=== PATIENT | female | born 1980 | race Caucasian/White ===

== ENCOUNTER 2019-12-07 13:02 | Inpatient (IN) ==
[2019-12-07] MEDS ORDERED: SODIUM CHLORIDE 0.9% 1000ML 2,000 ML IV ONE (13:28)
--- NOTE | 2019-12-07 13:32 | XRay Report ---
XR chest 1V portable CLINICAL HISTORY: 39 years-old Female presenting with Chest Pain. TECHNIQUE: Portable upright AP view of the chest was obtained. COMPARISON: None. FINDINGS: Cardiomediastinal silhouette normal. Lungs are hyperinflated. No focal opacity. No pleural effusion o r pneumothorax. Osseous structures normal. Upper abdomen normal. IMPRESSION: 1. Hyperinflation could be due to exuberant inspiratory effort or obstructive lung disease. 2. No focal infiltrate to suggest pneumonia or other evidence of acute cardiopulmonary disease. ACT 112: Negative or not required by law. Electronically signed by: Mickey Boudreaux M.D. 12/07/2019 1:31 PM
[2019-12-07] MEDS ORDERED: ONDANSETRON INJ 2 MG/ML 2 ML VIAL IV STA (13:34)
--- NOTE | 2019-12-07 14:03 | Electrocardiogram Report ---
Test Reason : Blood Pressure : / mmHG Vent. Rate : 093 BPM Atrial Rate : 093 BPM P-R Int : 116 ms QRS Dur : 076 ms QT Int : 356 ms P-R-T Axes : 084 082 070 degrees QTc Int : 442 ms Poor data quality, interpretation may be adversely affected Normal sinus rhythm Biatrial enlargement Hyperacute T wave abnormality Abnormal ECG No previous ECGs available Confirmed by Bola Noble ([id number]) on 12/07/2019 2:03:27 PM Referred By: ER Confirmed By:Bola Noble
[2019-12-07 14:49] LABS: Basophils # (auto) 0.01 K/uL (0-0.2); Basophils % (auto) 0.1 %; Hemoglobin 12.8 g/dL (12.0-16.0); Immature Granulocytes # (auto) 0.04 K/uL (0.00-0.02); Immature Granulocytes % (auto) 0.5 %; Lymphocytes # (auto) 0.54 K/uL (1.2-3.4); Lymphocytes % (auto) 6.5 %; Mean Corpuscular Hgb Conc 31.2 g/dL (32-36); Mean Corpuscular Volume 76.9 fL (80-100); Mean Platelet Volume 11.4 fL (7.4-10.4); Monocytes % (auto) 4.8 %; Neutrophils # (auto) 7.34 K/uL (1.4-6.5); Neutrophils % (auto) 88.1 %; Platelet Count 430 K/uL (130-400); RDW Coefficient of Variation 17.6 % (11.5-14.5); RDW Standard Deviation 46.6 fL (36.4-46.3); Red Blood Count 5.33 M/uL (4.2-5.4); White Blood Count 8.33 K/uL (4.8-10.8)
[2019-12-07 15:13] LABS: Albumin Globulin Ratio 1.3 (0.9-2); Albumin Level 4.5 gm/dl (3.4-5.0); Aspartate Aminotransferase 10 U/L (15-37); BUN Creatinine Ratio 15.5 (10-20); Bilirubin,Total 0.4 mg/dl (0.2-1); Blood Urea Nitrogen 23 mg/dl (7-18); Calcium 8.6 mg/dl (8.5-10.1); Carbon Dioxide 14 mmol/L (21-32); Chloride 88 mmol/L (98-107); Creatinine Clr Calc Pharmacy 25.8 ml/min; Est GFR (African American) 51.2; Est GFR (Non-African American) 44.1; Globulin 3.5 gm/dl (2.5-4.0); Glucose 1092 mg/dl (70-99); Lipase 88 U/L (73-393); Potassium 5.2 mmol/L (3.5-5.1); Sodium 122 mmol/L (136-145)
[2019-12-07] MEDS ORDERED: INSULIN REGULAR 250 UNITS in SODIUM CHLORIDE 0.9% 247.5 ML IV SCH (15:30)
[2019-12-07] MEDS ORDERED: NORMOSOL-R 1,000 ML IV ONE (15:30)
[2019-12-07] MEDS ORDERED: ED DKA INSULIN DRIP ONE (15:30)
[2019-12-07] MEDS ORDERED: DKA GOAL RANGE 150-250 mg/dl ONE (15:30)
--- NOTE | 2019-12-07 15:30 | Emergency Department Note ---
ED Visit Note This patient was seen in concert with Dr. Ayers and we discussed and agreed upon the history, physical, assessment, and plan. See attending's note for details. . Resident Activity Tracking Resident Involvement: Resident Care Provided Care Provided: Adult ED
[2019-12-07 15:45] LABS: Beta-Hydroxybutyrate 74.49 mg/dl (0.2-2.81)
[2019-12-07] MEDS ORDERED: GLUCOSE 40% GEL 15 GM TUBE PO PRN (15:45)
[2019-12-07] MEDS ORDERED: DEXTROSE 50% 50 ML SYRINGE IV PRN (15:45)
[2019-12-07] MEDS ORDERED: NovoLIN-R BOLUS FROM BAG IV ONE (15:45)
[2019-12-07] MEDS ORDERED: GLUCOSE 10 TABS/TUBE PO PRN (15:45)
[2019-12-07] MEDS ORDERED: GLUCAGON FOR INJ 1 MG VIAL IM PRN (15:45)
[2019-12-07] MEDS ORDERED: CARBOHYDRATES FOR HYPOGLYCEMIA PO PRN (15:45)
[2019-12-07 15:46] LABS: Alanine Aminotransferase 22 U/L (12-78); Alkaline Phosphatase 87 U/L (45-117); Troponin I < 0.015 ng/ml (0-0.045)
[2019-12-07 15:56] LABS: Magnesium 2.7 mg/dl (1.8-2.4); Phosphorus 4.8 mg/dl (2.5-4.9)
--- NOTE | 2019-12-07 16:13 | CT Scan Report ---
CT head/brain wo con CT DOSE: 537.48 mGy.cm HISTORY: Mental status change dizzy TECHNIQUE: Multiaxial CT images of the head were performed without the use of intravenous contrast. A dose lowering technique was utilized adhering to the principles of ALARA. Comparison: None. Findings: The paranasal sinuses and mastoid air cells are clear. The calvarium and skull base are int act. The ventricles and sulci are within normal limits. There is no mass, hematoma, midline shift, or acute infarct. Impression: No acute intracranial abnormality. ACT 112: Negative or not required by law. The above report was generated using voice recognition software. It may contain grammatical, syntax or spelling errors. Electronically signed by: Iftikhar Soares M.D. 12/07/2019 4:11 PM
--- NOTE | 2019-12-07 16:37 | History & Physical Report ---
Date of Service December 07, 2019 Assessment & Plan (1) DKA (diabetic ketoacidoses): Pt presents with weakness, nausea, weight loss, polyuria, polydipsia Found to be in DKA with BSG >1000, pH 7.25, +ketones, AG 20 , HCO3 14 - received 2 L of IV NS in the ED, IV insulin gtt just started in the ED - will admit to ICU and treat with IV insulin gtt , IV fluid per DKA protocol - BMP q4 hrs - close hemodynamic monitoring - no prior hx of diabetes - obtain HbA1c - certified lactation educator and pharmacy for glycemic management - pt will need long-tern insulin treatment and go home with insulin sc, at this point difficult to assess proper insulin doses, christian. d/t pt's body habitus, BMI ~15 - pt will need close follow up for diabetes management - will order BILL 65 Abs and ICA antibodies for DM type 1 eval HEATHER - Cr above 1.4 - secondary to DKA and dehydration - cont. IVF - cont. to closely monitor Pseudohyponatremia - Na 122 in the setting of glc >1000 - will cont. to closely monitor, BMP q4 hrs per DKA protocol Severe malnutrition in setting of undiagnosed Diabetes presenting in DKA - pt's BMI ~15 - says she was always thin but most recently lost sign. amount of weight (d/t uncontrolled DM) - weight should improve in the future after insulin treatment and DM control - should follow up w/ PCP regarding weight management (2) Tachycardia: - due to dehydration , DKA - received 2 L of NS in the ED - may need additional IVF - says she also has hx of episodical tachycardia, previously evaluated w/ cardiology - no treatment needed at that time - monitor on tele in ICU - no sign of infection Dispo: ICU Code: Full History of Present Illness Chief Complaint: Palpitations, nausea, shortness of breath, nausea, weight loss, polyuria, polydipsia Primary Care Provider: NO PCP Today (12/07/2019) patient was seen by Jackie Quiros PA-C Patient is a 39-year-old female, with no significant past medical history, besides occasional tachycardia since she has been 17 years old. She presented today at her PCP office, and was seen by Jackie Quiros PA-C. Pt has been feeling thirsty, and having polyuria since . She has had nausea, for past several days. She also has had significant weight loss. Patient says that her regular weight is about 104 pounds, recently she is about 87 pounds. For past couple of days she also felt short of breath and had palpitations. On November 18, she had 6 teeth extracted. Today she followed up with her dentist, and reportedly there were no issues. At her PCP office today, she was found to be tachycardic in the 190s. She was sent to the ER via ambulance for further evaluation. She was found to have SVT, and received adenosine in the ED, now she is in normal sinus rhythm. However her blood glucose level was elevated over 1000. Ketones positive. She also has HEATHER/d ehydrated. VBG obtained, pH 7.25. Patient was started on DKA treatment in the ED, she received 2 L of normal saline and was started on IV insulin drip. Home medications on admission: occasional Advil Allergies Allergy/AdvReac Type Severity Reaction Status Date / Time No Known Allergies Allergy Verified 12/07/19 15:44 Home Medications Home Medications Medication Instructions Recorded Confirmed Type Women's One Daily 1 tab PO DAILY 12/07/19 12/07/19 History blood glucose control, normal #1 ea 12/10/19 Rx [OneTouch Verio Mid Control] insulin aspart U-100 [Novolog 7 units SQ UD #15 ml 12/10/19 Rx Flexpen U-100 Insulin] insulin glargine [Lantus Solostar 12 units SQ DAILY #15 ml 12/10/19 Rx U-100 Insulin] lancets [Lancets,Thin] #100 ea 12/10/19 Rx pen needle, diabetic [BD #100 ea 12/10/19 Rx Ultra-Fine Micro Pen Needle] Past Med/Surg History Medical History Tachycardia Surgical History H/O tooth extraction Family History Mother Ovarian cancer Father Heart disease Grandmother (Paternal) Diabetes Grandfather (Maternal) Stroke Social History Preferred Language: Albanian Communication Ability: Effective Resource Conservation Manager Required: No Beliefs That Will Affect Care: None Current Living Situation: Spouse and Family Feels Safe at Home: Yes Smoking Status: Current every day smoker Tobacco Type: cigarettes ; Second Hand Exposure: Yes ; Hx Alcohol Use: Yes Alcohol type: wine and hard liquor Hx Substance Use: Yes substance use type: marijuana Review of Systems Review of Systems: All systems reviewed & are unremarkable except as noted in HPI & below Constitutional: + fatigue and + weight loss; no fever and no chills Eyes: + worsening vision Ear, Nose, Mouth, Throat: + ear pain (Muffled hearing) and + dental pain (Recent dental extraction, but no current issues) Respiratory: + dyspnea; no cough and no pain on inspiration Cardiovascular: + palpitations; no chest pain and no edema Gastrointestinal: + nausea and + vomiting; no abdominal pain Genitourinary: + urinary frequency Musculoskeletal: + back pain (Chronic) Integumentary: no rash Neurologic: no localized weakness, no paresthesia and no confusion Psychiatric: no behavioral changes, no depression, no anxiety and no panic attacks Endocrine: + polydipsia and + polyuria Hematologic / Lymphatic: no easy bleeding and no easy bruising Allergy / Immunological: no lip swelling and no urticaria Physical Exam Physical Exam: Very thin adult female, lying in bed, in no acute distress Constitutional: WD/WN, vitals as above + ill appearing and + thin Eyes: PERRL, conjunctivae normal, anicteric sclerae EOM intact bilaterally ENMT: external ear and nose normal, oropharynx normal Mouth: + dentures (very poor dentition) Neck: trachea midline, no thyromegaly normal visual inspection Respiratory: normal respiratory effort, lungs clear to auscultation Auscultation: no crackles, no rhonchi and no wheezes Cardiovascular: RRR, no murmur, no edema Heart Sounds: no murmur Chest (Breasts): Chest: normal inspection of chest Gastrointestinal (Abdomen): Inspection/Auscultation: abdomen normal to inspection and normal bowel sounds Percussion/Palpation: abdomen soft; abdomen nontender and no guarding Abdomen: Extremely thin Musculoskeletal: no cyanosis or clubbing, extremities motor strength 5/5 Head/Neck/Chest: normocephalic, head atraumatic and neck supple Extremities: extremities normal to inspection Moves all 4 extremities spontaneously and without difficulty Skin: no rashes, warm and dry Neurologic: PERRL, EOMI, accommodation nl, no face palsy, no dysarthria moves all extremities Speech / Cognition: normal speech No sensory loss noted Psychiatric: A+Ox3, euthymic affect Speech: normal rate/rhythm/volume of speech Genitourinary: no CVA tenderness Lymphatic: no lymphedema Results & Data Vital Signs (Past 12 Hours) Vital Signs Temp Pulse Pulse Resp BP BP Pulse Ox 12/07/19 14:34 87 14 135/92 99 12/07/19 13:28 99 12/07/19 13:12 36.6 C 91 H 16 131/87 99 Laboratory Results 12/07/19 12/07/19 12/07/19 Range/Units 17:06 16:02 16:02 WBC (4.8-10.8) K/uL RBC (4.2-5.4) M/uL Hgb (12.0-16.0) g/dL Hct (37-47) % MCV (80-100) fL MCH (25-34) pg MCHC (32-36) g/dL RDW Std Deviation (36.4-46.3) fL RDW Coeff of Bao (11.5-14.5) % Plt Count (130-400) K/uL MPV (7.4-10.4) fL Immature Gran % (Auto) % Neut % (Auto) % Lymph % (Auto) % Amite % (Auto) % Eos % (Auto) % Baso % (Auto) % Immature Gran # (Auto) (0.00-0.02) K/uL Neut # (Auto) (1.4-6.5) K/uL Lymph # (Auto) (1.2-3.4) K/uL Amite # (Auto) (0.11-0.59) K/uL Eos # (Auto) (0-0.5) K/uL Baso # (Auto) (0-0.2) K/uL VBG pH 7.25 L Cancelled VBG pCO2 30 L Cancelled VBG pO2 52 Cancelled VBG HCO3 13 Cancelled VBG O2 Saturation 81.1 Cancelled VBG Base Excess -13.2 Cancelled Barometric Pressure 729.5 Cancelled Sodium (136-145) mmol/L Potassium (3.5-5.1) mmol/L Chloride (98-107) mmol/L Carbon Dioxide (21-32) mmol/L Anion Gap (3-11) BUN (7-18) mg/dl Creatinine (0.6-1.2) mg/dl Est Cr Clr Drug Dosing ml/min Est GFR ( Amer) Est GFR (Non-Af Amer) BUN/Creatinine Ratio (10-20) Glucose 831 H* (70-99) mg/dl Calcium (8.5-10.1) mg/dl Phosphorus (2.5-4.9) mg/dl Magnesium (1.8-2.4) mg/dl Total Bilirubin (0.2-1) mg/dl AST (15-37) U/L ALT (12-78) U/L Alkaline Phosphatase (45-117) U/L Troponin I (0-0.045) ng/ml Total Protein (6.4-8.2) gm/dl Albumin (3.4-5.0) gm/dl Globulin (2.5-4.0) gm/dl Albumin/Globulin Ratio (0.9-2) Lipase (73-393) U/L Beta-Hydroxybutyric Acd 82.37 H (0.2-2.81) mg/dl 12/07/19 12/07/19 12/07/19 Range/Units 14:36 14:36 14:36 WBC 8.33 (4.8-10.8) K/uL RBC 5.33 (4.2-5.4) M/uL Hgb 12.8 (12.0-16.0) g/dL Hct 41.0 (37-47) % MCV 76.9 L (80-100) fL MCH 24.0 L (25-34) pg MCHC 31.2 L (32-36) g/dL RDW Std Deviation 46.6 H (36.4-46.3) fL RDW Coeff of Bao 17.6 H (11.5-14.5) % Plt Count 430 H (130-400) K/uL MPV 11.4 H (7.4-10.4) fL Immature Gran % (Auto) 0.5 % Neut % (Auto) 88.1 % Lymph % (Auto) 6.5 % Amite % (Auto) 4.8 % Eos % (Auto) 0.0 % Baso % (Auto) 0.1 % Immature Gran # (Auto) 0.04 H (0.00-0.02) K/uL Neut # (Auto) 7.34 H (1.4-6.5) K/uL Lymph # (Auto) 0.54 L (1.2-3.4) K/uL Amite # (Auto) 0.40 (0.11-0.59) K/uL Eos # (Auto) 0.00 (0-0.5) K/uL Baso # (Auto) 0.01 (0-0.2) K/uL VBG pH VBG pCO2 VBG pO2 VBG HCO3 VBG O2 Saturation VBG Base Excess Barometric Pressure Sodium 122 L (136-145) mmol/L Potassium 5.2 H (3.5-5.1) mmol/L Chloride 88 L (98-107) mmol/L Carbon Dioxide 14 L (21-32) mmol/L Anion Gap 20.0 H (3-11) BUN 23 H (7-18) mg/dl Creatinine 1.48 H (0.6-1.2) mg/dl Est Cr Clr Drug Dosing 25.8 ml/min Est GFR ( Amer) 51.2 Est GFR (Non-Af Amer) 44.1 BUN/Creatinine Ratio 15.5 (10-20) Glucose 1092 H* (70-99) mg/dl Calcium 8.6 (8.5-10.1) mg/dl Phosphorus 4.8 (2.5-4.9) mg/dl Magnesium 2.7 H (1.8-2.4) mg/dl Total Bilirubin 0.4 (0.2-1) mg/dl AST 10 L (15-37) U/L ALT 22 (12-78) U/L Alkaline Phosphatase 87 (45-117) U/L Troponin I < 0.015 (0-0.045) ng/ml Total Protein 8.0 (6.4-8.2) gm/dl Albumin 4.5 (3.4-5.0) gm/dl Globulin 3.5 (2.5-4.0) gm/dl Albumin/Globulin Ratio 1.3 (0.9-2) Lipase 88 (73-393) U/L Beta-Hydroxybutyric Acd 74.49 H (0.2-2.81) mg/dl Medications Administered Current Inpatient Medications Dextrose (Dextrose 50%) 25 - 50 ml IV UD PRN; Protocol PRN Reason: Hypoglycemia Protocol Stop: 01/06/20 15:44 Glucagon (Glucagen) 1 mg IM UD PRN; Protocol PRN Reason: Hypoglycemia Protocol Stop: 01/06/20 15:44 Glucose (Glucose 40%) 15 - 30 gm PO UD PRN; Protocol PRN Reason: Hypoglycemia Protocol Stop: 01/06/20 15:44 Glucose (Dex4 Glucose) 4 - 8 tabs PO UD PRN; Protocol PRN Reason: Hypoglycemia Protocol Stop: 01/06/20 15:44 Insulin Human Regular 250 (units/ Sodium Chloride) 250 mls @ 3.2 mls/hr IV .Q24H MARCO; Protocol Stop: 01/06/20 15:29 Last Admin: 12/07/19 16:25 Dose: 3.2 ml/hr, 3.2 mls/hr Documented by: Miscellaneous (Carbohydrates For Hypoglycemia) 15 - 30 gm PO UD PRN PRN Reason: Hypoglycemia Treatment Stop: 01/06/20 15:44 Code Status & VTE Plan Code Status Full (1) DKA (diabetic ketoacidoses) Diabetes mellitus complication detail: without coma Diabetes mellitus type: other specified (including LEVY) Qualified Code(s): E13.10 - Other specified diabetes mellitus with ketoacidosis without coma
[2019-12-07 17:15] LABS: Base Excess VBG -13.2 mEq/L; Oxygen Saturation VBG 81.1 %; pH VBG 7.25 (7.36-7.41)
[2019-12-07 17:22] LABS: Beta-Hydroxybutyrate 82.37 mg/dl (0.2-2.81)
[2019-12-07 19:15] LABS: Beta-Hydroxybutyrate 60.84 mg/dl (0.2-2.81)
--- NOTE | 2019-12-07 19:21 | Critical Care Consultation ---
Date of Consultation December 07, 2019 Assessment & Plan (1) DKA (diabetic ketoacidoses): Reason Critically Ill: 39-year-old female admitted to the ICU for DKA Neuro - [facility] ICU: Negative Cardiac - SVTpatient was found to be in SVT in the emergency department with heart rate 190s -Given adenosine with successful conversion to NSR -Troponin negative -May have been exacerbated by electrolyte imbalances/acidosis in the setting of DKA - consider BB if recurrence -Patient currently remains in NSR, will continue to monitor on telemetry Respiratory - Patient has history of 1 PPD smoker, information on cessation offered Currently maintaining sats on room air, will monitor on pulse ox GI - Malnourishmentpatient has BMI 14.5 and reports over 10% body weight loss unintentional as of recent -Suspected secondary to DKA/type 1 diabetes, as patient reports she has had a healthy appetite -will advance diabetic diet as tolerated, will add boost shakes -Thiamine, folic acid, multivitamin added to the patient's med regimen -We will check TSH, T4 in a.m. -Nutrition consulted - will keep calorie count RENAL/LYTES - AKIlikely secondary to dehydration as creatinine has improved following fluid resuscitation -We will continue to trend with BMPs -Continue IV fluids -Avoid nephrotoxins Pseudo-hyponatremiapatient's corrected Na with hyperglycemia actually 138 -We will continue to trend but expect Na to correct as osmolality normalizes - Strict I's and O's ENDO - DKA/new onset diabetesinitial anion gap 20, pH 7.25, HCO3 14 -Patient placed on insulin drip, bolused with IV fluids, anion gap rapidly corrected -Glucose is trending down and bicarb trending up, will continue to monitor with BMP - DKA protocol -Patient likely stay on insulin drip overnight and convert to subcu in a.m. once corrected - Lipase WNL -Acidosis now corrected - Trend BHA - f/u Hgb A1c in AM -clinical trial educator consulted HEME - H&H stable, monitor routine CBCs ID - Recent tooth extraction, no signs of infection at this time, monitor for fever and leukocytosis LINES/IV ACCESS - Peripheral IVs DVT PROPHYLAXIS - SCDs, heparin I have personally spent 40 minutes of critical care time in the direct management of this patient. This is a life/limb threatening event. This includes time spent evaluating patient, direct bedside care, chart review, placing orders, interpretation of diagnostic studies, discussion with consultants, patient, and family members, as well as other required patient management activities. This time is exclusive of all separately billable procedures, and teaching time and separate from and in addition to any other critical care service time. Thank you for allowing us to participate in the care of this patient. Please refer to my attending physician's documentation for any further recommendations. (2) Acute hyponatremia: (3) SVT (supraventricular tachycardia): (4) Diabetes: (5) Admitted to intensive care unit: History of Present Illness Attending Physician: Taqueria Mack MD History of Present Illness Patient is a 39-year-old female with no significant past medical history. She was seen earlier today by PCP for complaints of polyuria, thirst, and significant weight loss which have been ongoing since late October. Patient also states that she started having nausea and vomiting, S OB, and palpitations that started a few days ago. Patient was found to be tachycardic with rate in the 190s and was transported to the emergency department. She was found to be in SVT and received adenosine with conversion to NSR. It was also discovered that the patient's blood glucose was greater than 1000 and she had positive ketones on her UA. Patient was given 2 L normal saline bolus and placed on insulin drip for treatment of DKA. She was then transferred to ICU for further management of new onset of diabetes with DKA. Upon arrival to the ICU the patient was calm and oriented. She complains of a mild headache. She denies changes in vision, dizziness, syncope, shortness of breath, sore throat, productive cough, palpitations, chest pain, nausea or vomiting, diarrhea, abdominal pain. Allergies Allergy/AdvReac Type Severity Reaction Status Date / Time No Known Allergies Allergy Verified 12/07/19 15:44 Home Medications Home Medications Medication Instructions Recorded Confirmed Type ibuprofen 400 mg PO Q6H PRN 12/07/19 12/07/19 History kvorguto-[id number]-[id number]-calcium-mins 1 tab PO DAILY 12/07/19 12/07/19 History [Women's One Daily] Patient History Medical History Tachycardia Surgical History H/O tooth extraction Family History Mother Ovarian cancer Father Heart disease Grandmother (Paternal) Diabetes Grandfather (Maternal) Stroke Social History Preferred Language: Bruneian Communication Ability: Effective Database Security Expert Required: No Beliefs That Will Affect Care: None Current Living Situation: Spouse and Family Other Information That Helps Us Care for You: No Feels Safe at Home: Yes Safety Concerns: Feels Safe At This Time Smoking Status: Current every day smoker Tobacco Type: cigarettes ; Do You Dip or Chew Tobacco: No ; Second Hand Exposure: Yes ; Tobacco Cessation Education Requested by Patient: Yes (pt requesting information) Hx Alcohol Use: Yes Alcohol type: wine and hard liquor Hx Substance Use: Yes substance use type: marijuana Last Used Substance Other:: 4 days ago Review of Systems Review of Systems: All systems reviewed & are unremarkable except as noted in HPI & below Physical Exam Constitutional: + thin, cooperative, comfortable, + malnourished and + underweight Eyes: PERRL, conjunctivae normal, anicteric sclerae ENMT: external ear and nose normal, oropharynx normal Neck: trachea midline, no thyromegaly Respiratory: normal respiratory effort, lungs clear to auscultation Cardiovascular: RRR, no murmur, no edema Heart Sounds: normal S1 and normal S2 Vessels: no JVD Extremities: normal capillary refill; no edema Gastrointestinal (Abdomen): normal bowel sounds, soft, nontender, no hepatosplenomegaly Musculoskeletal: no cyanosis or clubbing, extremities motor strength 5/5 Skin: no rashes, warm and dry Neurologic: PERRL, EOMI, accommodation nl, no face palsy, no dysarthria Psychiatric: A+Ox3, euthymic affect Results & Data Vital Signs (Past 12 Hours) Vital Signs Temp Pulse Pulse Resp BP BP BP 12/07/19 18:54 37.2 C 112 H 20 117/78 12/07/19 18:32 77 18 122/77 12/07/19 16:30 80 18 125/88 12/07/19 14:34 87 14 135/92 12/07/19 13:28 12/07/19 13:12 36.6 C 91 H 16 131/87 Pulse Ox 12/07/19 18:54 100 12/07/19 18:32 100 12/07/19 16:30 98 12/07/19 14:34 99 12/07/19 13:28 99 12/07/19 13:12 99 Coding Level of Care Code Critical Care 1st 30-74 mins Diagnoses DKA (diabetic ketoacidoses) E13.10 Diabetes mellitus complication detail: without coma Diabetes mellitus type: other specified (including LEVY) Acute hyponatremia E87.1 SVT (supraventricular tachycardia) I47.1 Diabetes E11.9 Admitted to intensive care unit Z78.9 (1) DKA (diabetic ketoacidoses) Diabetes mellitus complication detail: without coma Diabetes mellitus type: other specified (including LEVY) Qualified Code(s): E13.10 - Other specified diabetes mellitus with ketoacidosis without coma
[2019-12-07] MEDS ORDERED: ICU PROTOCOL FOR HYPERGLYCEMIA PRN (19:25)
[2019-12-07] MEDS ORDERED: SODIUM CHLORIDE 0.9% 1000ML 1,000 ML IV SCH (19:30)
--- NOTE | 2019-12-07 19:30 | Emergency Department Note ---
Entered by Shobha Nuñez acting as a scribe for Nish Ayers DO History of Present Illness General Chief complaint: Cardiac Assessment Time Seen by Provider: 12/07/19 13:15 Source: patient History of Present Illness Provider complaint: dizziness Onset (ago): hour(s) 3 Location: left and right Pain Consistency: + constant Maximum Pain Intensity: 0 Quality: + other (dizziness) Associated symptoms: + cough, + nausea/vomiting, + weakness and + other (Positive ringing ears; Positive vision blurriness; Positive throat pain; Positive urinary frequency; Negative dysuria;); no chest pain The patient, who is a 39 year old female with a medical history of tachycardia, presents to the Emergency Room with complaints of dizziness that occurred after an oral procedure at 1000. The patient explains that the her dizziness is consta nt and nothing exacerbates or improves it. The patient states that this morning at hour 1000 the patient was having an oral procedure done and noticed that she felt woozy after. The patient was sent to [facility] where her blood pressure was over 190. The patient informs that she has been nauseous for that past two days and vomits every time she eats. The patient expresses that she has ringing in h er ears and she is having vision blurriness. The patient states that she is having intermittent cough and throat pain. The patient states that her last bowel movement was yesterday which was normal. The patient expresses urinary frequency. The patient denies chest pain or dysuria. The patient reports smoking a pack a day, using marijuana, and drinking occasionally. The patient denies a history of hypertension but states that her father had heart problems in his 50s. The patient expresses a history of SVT with last week being her most recent episode. The patient states that she wore a halter in the past but it was unsucessful. The patient denies an eating disorder and denotes her recent weig ht loss to a previous surgical procedure. Home Medications Home Medications Medication Instructions Recorded Confirmed Type ibuprofen 400 mg PO Q6H PRN 12/07/19 12/07/19 History uamjboqo-xnno-UH-calcium-mins 1 tab PO DAILY 12/07/19 12/07/19 History [Women's One Daily] Allergies Allergy/AdvReac Type Severity Reaction Status Date / Time No Known Allergies Allergy Verified 12/07/19 15:44 Past Med/Surg History Medical History Tachycardia Surgical History H/O tooth extraction Family History Mother Ovarian cancer Father Heart disease Grandmother (Paternal) Diabetes Grandfather (Maternal) Stroke Social History Preferred Language: Polish Communication Ability: Effective Mainstreaming Facilitator Required: No Beliefs That Will Affect Care: None Current Living Situation: Spouse and Family Other Information That Helps Us Care for You: No Feels Safe at Home: Yes Safety Concerns: Feels Safe At This Time Smoking Status: Current every day smoker Tobacco Type: cigarettes ; Do You Dip or Chew Tobacco: No ; Second Hand Exposure: Yes ; Tobacco Cessation Education Requested by Patient: Yes (pt requesting information) Hx Alcohol Use: Yes Alcohol type: wine and hard liquor Hx Substance Use: Yes substance use type: marijuana Last Used Substance Other:: 4 days ago Review of Systems See HPI for pertinent positives & negatives. and A total of 10 systems reviewed and were otherwise negative Physical Exam Vital Signs Vital Signs - 24 hr 12/07/19 13:12 12/07/19 13:28 12/07/19 14:34 Temperature 36.6 C Temperature Source Oral Pulse Rate 91 H Pulse Rate [Apical] 87 Respiratory Rate 16 14 Blood Pressure 131/87 Blood Pressure [Right Arm] 135/92 Blood Pressure Mean 101 Blood Pressure Mean [Right Arm] 106 Pulse Oximetry 99 99 99 Oxygen Delivery Method Room Air Room Air Room Air Sepsis Recent Fever Within 48 Hours No Sepsis New/Unexplained Change in Mental Status No Sepsis Action Taken by Nursing No Action Required 12/07/19 16:30 Temperature Temperature Source Pulse Rate Pulse Rate [Apical] 80 Respiratory Rate 18 Blood Pressure Blood Pressure [Right Arm] 125/88 Blood Pressure Mean Blood Pressure Mean [Right Arm] 100 Pulse Oximetry 98 Oxygen Delivery Method Room Air Sepsis Recent Fever Within 48 Hours Sepsis New/Unexplained Change in Mental Status Sepsis Action Taken by Nursing GENERAL: sitting up in bed, cachectic, ill- appearing, mal-nourished, wearing hospital gown, EYE EXAM: normal conjunctiva, OROPHARYNX: no exudate, no erythema, lips, buccal mucosa, and tongue normal and mucous membranes are moist NECK: supple, no nuchal rigidity, no adenopathy, non-tender LUNGS: Clear to auscultation. Normal chest wall mechanics HEART: no murmurs, S1 normal and S2 normal ABDOMEN: abdomen soft, non-tender, normo-active bowel sounds, no masses, no rebound or guarding. BACK: Back is symmetrical on inspection and there is no deformity, no midline tenderness, no CVA tenderness. SKIN: no rashes and no bruising UPPER EXTREMITIES: upper extremities are grossly normal. LOWER EXTREMITIES: No pitting edema. NEURO EXAM: Normal sensorium, cranial nerves II-XII intact, normal speech, no weakness of arms, no weakness of legs. No drift. Finger to nose intact. Gross sensation intact. Course Course ED COURSE: Vital signs were reviewed and showed normotensive The patients medical record was reviewed The above diagnostic studies were performed and reviewed. ED treatments and interventions as stated above. 1311: The patient was evaluated in room resting. A complete history and physical examination was performed. 1525: I reviewed the patient's case with Jory Ness PA-C. Francisco Kenyon will evaluate the patient for further management. 1530: Upon reevaluation, the patient is resting.I discussed my findings with the patient and she understands and agrees with the treatment plan. Based on the patients age, coexisting illnesses, exam and lab findings the decision to treat as an inpatient was made. The patient remained stable while under my care. The patient will be evaluated for further management. Consultations Consultation #1: I reviewed the patient's case with Jory Ness PA-C. Francisco Kenyon will evaluate the patient for further management. Time: 15:25 Administered Medications Acetaminophen (Tylenol) 650 mg PO Q4H PRN PRN Reason: Pain or Fever Stop: 01/06/20 19:49 Last Admin: 12/07/19 19:53 Dose: 650 mg Documented by: [id number] Insulin Human Regular 250 (units/ Sodium Chloride) 250 mls @ 3.2 mls/hr IV .Q24H [facility]; Protocol Stop: 01/06/20 15:29 Last Titration: 12/07/19 19:00 Dose: 3.8 ml/hr, 3.8 mls/hr Documented by: [id number] Cosigned by: [id number] Admin: 12/07/19 16:25 Dose: 3.2 ml/hr, 3.2 mls/hr Documented by: [id number] Cosigned by: [id number] Sodium Chloride (Nss 1000ml) 1,000 mls @ 150 mls/hr IV .Q6H40M [facility] Stop: 01/06/20 19:29 Last Admin: 12/07/19 19:50 Dose: 150 mls/hr Documented by: [id number] Discontinued Medications Sodium Chloride (Nss 1000ml) 2,000 mls @ 999 mls/hr IV .Q2H1M ONE Stop: 12/07/19 15:28 Last Infusion: 12/07/19 19:12 Dose: 0 mls/hr Documented by: [id number] Admin: 12/07/19 14:34 Dose: 999 mls/hr Documented by: [id number] Parenteral Electrolytes (Normosol-R) 1,000 mls @ 999 mls/hr IV .Q1H1M ONE Stop: 12/07/19 16:30 Last Admin: 12/07/19 16:30 Dose: Not Given Documented by: [id number] Insulin Human Regular (Novolin R Bolus From Bag) 3.2 units IV ONE ONE Stop: 12/07/19 15:46 Last Admin: 12/07/19 16:25 Dose: 3.2 units Documented by: [id number] Cosigned by: [id number] Miscellaneous (Insulin Protocol Dka Goal Range) 1 ea N/A ONE ONE Stop: 12/07/19 15:31 Last Admin: 12/07/19 16:26 Dose: Not Given Documented by: [id number] Ondansetron HCl (Zofran) 4 mg IV NOW STA Stop: 12/07/19 13:35 Last Admin: 12/07/19 14:34 Dose: 4 mg Documented by: [id number] Critical Care Time Critical Care Time: Yes Total Critical Care Time: 34 I have personally spent 34 minutes of critical care time in the direct management of this patient. This includes bedside care, interpretation of diagno stic studies, and testing, discussion with consultants, patient, and family members, and other required patient management activities. This 34 minutes is in excess of all separately billable procedures. Medical Decision Making Differential Diagnosis Differential diagnosis includes etiologies such as benign positional vertigo, dehydration, hypovolemia, anemia, tumor, infection, hypoglycemia, electrolyte abnormalities, cardiac sources, intracerebral event, toxicologic, neurologic, as well as others were entertained. Medical Records Attestation: I reviewed the patient's medical records. Home Medications Current Medication List: was personally reviewed by me Laboratory Data Attestation: I reviewed the patient's lab results. Result diagrams: 12/07/19 14:36 12/07/19 17:57 Lab Results 12/07/19 12/07/19 12/07/19 Range/Units 14:36 14:36 14:36 WBC 8.33 (4.8-10.8) K/uL RBC 5.33 (4.2-5.4) M/uL Hgb 12.8 (12.0-16.0) g/dL Hct 41.0 (37-47) % MCV 76.9 L (80-100) fL MCH 24.0 L (25-34) pg MCHC 31.2 L (32-36) g/dL RDW Std Deviation 46.6 H (36.4-46.3) fL RDW Coeff of Bao 17.6 H (11.5-14.5) % Plt Count 430 H (130-400) K/uL MPV 11.4 H (7.4-10.4) fL Immature Gran % (Auto) 0.5 % Neut % (Auto) 88.1 % Lymph % (Auto) 6.5 % [place] % (Auto) 4.8 % Eos % (Auto) 0.0 % Baso % (Auto) 0.1 % Immature Gran # (Auto) 0.04 H (0.00-0.02) K/uL Neut # (Auto) 7.34 H (1.4-6.5) K/uL Lymph # (Auto) 0.54 L (1.2-3.4) K/uL [place] # (Auto) 0.40 (0.11-0.59) K/uL Eos # (Auto) 0.00 (0-0.5) K/uL Baso # (Auto) 0.01 (0-0.2) K/uL VBG pH VBG pCO2 VBG pO2 VBG HCO3 VBG O2 Saturation VBG Base Excess Barometric Pressure Sodium 122 L (136-145) mmol/L Potassium 5.2 H (3.5-5.1) mmol/L Chloride 88 L (98-107) mmol/L Carbon Dioxide 14 L (21-32) mmol/L Anion Gap 20.0 H (3-11) BUN 23 H (7-18) mg/dl Creatinine 1.48 H (0.6-1.2) mg/dl Est Cr Clr Drug Dosing 25.8 ml/min Est GFR ( Amer) 51.2 Est GFR (Non-Af Amer) 44.1 BUN/Creatinine Ratio 15.5 (10-20) Glucose 1092 H* (70-99) mg/dl Calcium 8.6 (8.5-10.1) mg/dl Phosphorus 4.8 (2.5-4.9) mg/dl Magnesium 2.7 H (1.8-2.4) mg/dl Total Bilirubin 0.4 (0.2-1) mg/dl AST 10 L (15-37) U/L ALT 22 (12-78) U/L Alkaline Phosphatase 87 (45-117) U/L Troponin I < 0.015 (0-0.045) ng/ml Total Protein 8.0 (6.4-8.2) gm/dl Albumin 4.5 (3.4-5.0) gm/dl Globulin 3.5 (2.5-4.0) gm/dl Albumin/Globulin Ratio 1.3 (0.9-2) Lipase 88 (73-393) U/L Beta-Hydroxybutyric Acd 74.49 H (0.2-2.81) mg/dl 12/07/19 12/07/19 12/07/19 Range/Units 16:02 16:02 17:06 WBC (4.8-10.8) K/uL RBC (4.2-5.4) M/uL Hgb (12.0-16.0) g/dL Hct (37-47) % MCV (80-100) fL MCH (25-34) pg MCHC (32-36) g/dL RDW Std Deviation (36.4-46.3) fL RDW Coeff of Bao (11.5-14.5) % Plt Count (130-400) K/uL MPV (7.4-10.4) fL Immature Gran % (Auto) % Neut % (Auto) % Lymph % (Auto) % [place] % (Auto) % Eos % (Auto) % Baso % (Auto) % Immature Gran # (Auto) (0.00-0.02) K/uL Neut # (Auto) (1.4-6.5) K/uL Lymph # (Auto) (1.2-3.4) K/uL [place] # (Auto) (0.11-0.59) K/uL Eos # (Auto) (0-0.5) K/uL Baso # (Auto) (0-0.2) K/uL VBG pH Cancelled 7.25 L VBG pCO2 Cancelled 30 L VBG pO2 Cancelled 52 VBG HCO3 Cancelled 13 VBG O2 Saturation Cancelled 81.1 VBG Base Excess Cancelled -13.2 Barometric Pressure Cancelled 729.5 Sodium (136-145) mmol/L Potassium (3.5-5.1) mmol/L Chloride (98-107) mmol/L Carbon Dioxide (21-32) mmol/L Anion Gap (3-11) BUN (7-18) mg/dl Creatinine (0.6-1.2) mg/dl Est Cr Clr Drug Dosing ml/min Est GFR ( Amer) Est GFR (Non-Af Amer) BUN/Creatinine Ratio (10-20) Glucose 831 H* (70-99) mg/dl Calcium (8.5-10.1) mg/dl Phosphorus (2.5-4.9) mg/dl Magnesium (1.8-2.4) mg/dl Total Bilirubin (0.2-1) mg/dl AST (15-37) U/L ALT (12-78) U/L Alkaline Phosphatase (45-117) U/L Troponin I (0-0.045) ng/ml Total Protein (6.4-8.2) gm/dl Albumin (3.4-5.0) gm/dl Globulin (2.5-4.0) gm/dl Albumin/Globulin Ratio (0.9-2) Lipase (73-393) U/L Beta-Hydroxybutyric Acd 82.37 H (0.2-2.81) mg/dl Imaging Data Radiologist's Impression: Radiology results as stated below per my review and the radiologist's interpretation: XR chest 1V portable CLINICAL HISTORY: 39 years-old Female presenting with Chest Pain. TECHNIQUE: Portable upright AP view of the chest was obtained. COMPARISON: None. FINDINGS: Cardiomediastinal silhouette normal. Lungs are hyperinflated. No focal opacity. No pleural effusion or pneumothorax. Osseous structures normal. Upper abdomen normal. IMPRESSION: 1. Hyperinflation could be due to exuberant inspiratory effort or obstructive lung disease. 2. No focal infiltrate to suggest pneumonia or other evidence of acute cardiopulmonary disease. ACT 112: Negative or not required by law. Electronically signed by: Mickey Boudreaux M.D. 12/07/2019 1:[address] head/brain wo con CT DOSE: 537.48 mGy.cm HISTORY: Mental status change dizzy TECHNIQUE: Multiaxial CT images of the head were performed without the use of intravenous contrast. A dose lowering technique was utilized adhering to the principles of ALARA. Comparison: None. Findings: The paranasal sinuses and mastoid air cells are clear. The calvarium and skull base are intact. The ventricles and sulci are within normal limits. There is no mass, hematoma, midline shift, or acute infarct. Impression: No acute intracranial abnormality. ACT 112: Negative or not required by law. The above report was generated using voice recognition software. It may contain grammatical, syntax or spelling errors. Electronically signed by: Iftikhar Soares M.D. 12/07/2019 4:11 PM ECG Data Attestation: I personally reviewed and interpreted this ECG as follows: Indication: + weakness Rate (beats per minute): 93 Rhythm: + sinus rhythm ECG [place]: + Normal ECG ST segments: + T-wave inversions (Septal) ECG Findings: + Peaked T waves (anterior leads) Additional Comments: Pre-hospital visit SVT; 190 BPM; Normal axis; Peak T waves; Blood Pressure Blood Pressure Findings: Normal blood pressure MDM Narrative The patient, who is a 39 year old female with a medical history of tachycardia, presents to the Emergency Room with complaints of dizziness associate with nausea vomiting increased thirst and increased urination. IV was established blood work was obtained shows no significant leukocytosis or anemia. IV was established blood work was obtained. Patient was ordered a total of 3 L IV fluids while in the ER. VBG with a pH of 7.25 and a CO2 of 30. BMP with hyponatremia at 122 and a glucose of over thousand. Patient had a anion gap of 20 and a CBC CO2 of 14. LFTs bilirubin troponin lipase was unremarkable. Beta hydroxybutyric was elevated. Patient was given an insulin drip and bolus. Chest x-ray and CT head was unremarkable. Patient was updated at bedside. Discussed with the hospitalist and admitted for DKA with metabolic acidosis following insulin drip and bolus and 3 L IV fluids. Impression & Plan DKA (diabetic ketoacidoses), Tachycardia, Acute hyponatremia Discharge Plan Visit Data *Final* Discharge Date/Time: 12/07/19 18:32 Chief Complaint: Cardiac Assessment ED Provider: Nish Ayers ED Midlevel Provider: William Ayala Discharge Problem: DKA (diabetic ketoacidoses), Tachycardia, Acute hyponatremia Patient Disposition: Admitted As Inpatient Discharge Instructions Interventions: ED Discharge Assessment Last Done: 12/07/19 18:32 Discharge Problem: DKA (diabetic ketoacidoses) Qualifiers: Diabetes mellitus type: other specified (including LEVY) Diabetes mellitus complication detail: without coma Qualified Code(s): E13.10 - Other specified diabetes mellitus with ketoacidosis without coma The scribe's documentation has been prepared under my direction and personally reviewed by me in its entirety. I confirm that the note above accurately reflects all work, treatment, procedures, and medical decision making performed by me.
[2019-12-07] MEDS ORDERED: ACETAMINOPHEN 325 MG TAB ONE (19:51)
[2019-12-07] MEDS: ACETAMINOPHEN 325 MG TAB PO PRN (19:53)
[2019-12-07 19:56] LABS: Base Excess VBG -5.9 mEq/L; Oxygen Saturation VBG 93.1 %; pH VBG 7.39 (7.36-7.41)
[2019-12-07 20:11] LABS: BUN Creatinine Ratio 19.6 (10-20); Calcium 8.9 mg/dl (8.5-10.1); Creatinine Clr Calc Pharmacy 41.6 ml/min; Est GFR (African American) 76.6; Est GFR (Non-African American) 66.1
[2019-12-07 20:28] LABS: Beta-Hydroxybutyrate 29.26 mg/dl (0.2-2.81)
[2019-12-07 20:49] LABS: Potassium 4.1 mmol/L (3.5-5.1)
[2019-12-07] MEDS ORDERED: SODIUM CHLOR 0.45% + 20MEQ KCL 20 MEQ/1,000 ML BAG IV SCH (21:00)
[2019-12-07] MEDS ORDERED: DEXTROSE 5% 500 ML IV STA (21:01)
[2019-12-07] MEDS ORDERED: SODIUM CHLORIDE 0.45 % 500 ML IV ONE (21:04)
[2019-12-07] MEDS ORDERED: PNEUMOCOCCAL Polysaccharide Vaccine 25mcg/0.5mL vial/Syr IM ONE (21:15)
[2019-12-07] MEDS ORDERED: POTASSIUM CHLORIDE 20 MEQ in DEXTROSE 5% 1,000 ML IV SCH (23:15)
[2019-12-07 23:28] LABS: Base Excess VBG -3.9 mEq/L; Oxygen Saturation VBG 85.4 %; pH VBG 7.38 (7.36-7.41)
[2019-12-07 23:43] LABS: Calcium 8.4 mg/dl (8.5-10.1); Creatinine Clr Calc Pharmacy 50.2 ml/min; Est GFR (African American) 95.9; Est GFR (Non-African American) 82.8; Potassium 4.3 mmol/L (3.5-5.1)
[2019-12-08 03:17] LABS: Basophils # (auto) 0.03 K/uL (0-0.2); Basophils % (auto) 0.2 %; Eosinophils # (auto) 0.06 K/uL (0-0.5); Eosinophils % (auto) 0.5 %; Hematocrit (blood only) 38.6 % (37-47); Hemoglobin 12.3 g/dL (12.0-16.0); Immature Granulocytes # (auto) 0.03 K/uL (0.00-0.02); Immature Granulocytes % (auto) 0.2 %; Lymphocytes # (auto) 3.18 K/uL (1.2-3.4); Lymphocytes % (auto) 25.1 %; Mean Corpuscular Hemoglobin 24.2 pg (25-34); Mean Corpuscular Hgb Conc 31.9 g/dL (32-36); Mean Corpuscular Volume 75.8 fL (80-100); Mean Platelet Volume 10.4 fL (7.4-10.4); Monocytes # (auto) 1.19 K/uL (0.11-0.59); Monocytes % (auto) 9.4 %; Neutrophils # (auto) 8.17 K/uL (1.4-6.5); Neutrophils % (auto) 64.6 %; Platelet Count 396 K/uL (130-400); RDW Coefficient of Variation 17.4 % (11.5-14.5); RDW Standard Deviation 45.1 fL (36.4-46.3); Red Blood Count 5.09 M/uL (4.2-5.4); White Blood Count 12.66 K/uL (4.8-10.8)
[2019-12-08 04:11] LABS: BUN Creatinine Ratio 25.7 (10-20); Calcium 8.6 mg/dl (8.5-10.1); Creatinine Clr Calc Pharmacy 57.3 ml/min; Est GFR (African American) 112.7; Est GFR (Non-African American) 97.3
[2019-12-08] MEDS: ACETAMINOPHEN 325 MG TAB PO PRN (04:18)
[2019-12-08 04:21] LABS: Beta-Hydroxybutyrate 6.74 mg/dl (0.2-2.81); Prealbumin 16.5 mg/dl (20-40); Thyroid Stimulating Hormone 0.501 uIu/ml (0.300-4.500)
[2019-12-08] MEDS ORDERED: GLUCOSE 10 TABS/TUBE PO PRN (04:23)
[2019-12-08] MEDS ORDERED: DEXTROSE 50% 50 ML SYRINGE IV PRN (04:23)
[2019-12-08] MEDS ORDERED: GLUCOSE 40% GEL 15 GM TUBE PO PRN (04:23)
[2019-12-08] MEDS ORDERED: CARBOHYDRATES FOR HYPOGLYCEMIA PO PRN (04:23)
[2019-12-08] MEDS ORDERED: GLUCAGON FOR INJ 1 MG VIAL SQ PRN (04:23)
[2019-12-08] MEDS ORDERED: INSULIN GLARGINE SOLOSTAR 100 UNITS/ML 3 ML PEN SC SCH (04:30)
[2019-12-08] MEDS ORDERED: PHARMACY GLYCEMIC MGMT CONSULT PRN (04:42)
[2019-12-08] MEDS ORDERED: INSULIN GLARGINE SOLOSTAR 100 UNITS/ML 3 ML PEN SC ONE ×3 (06:00→08:00)
[2019-12-08] MEDS: FOLIC ACID 1 MG TAB PO SCH (07:48)
[2019-12-08] MEDS: THIAMINE HCL 100 MG TAB PO SCH (07:48)
[2019-12-08] MEDS: HEPARIN SOD 5,000 UNIT/0.5 ML VIAL SQ SCH ×2 (07:48→21:02)
[2019-12-08] MEDS: MULTIVITAMIN TAB PO SCH (07:48)
[2019-12-08] MEDS: INSULIN ASPART 100 UNITS/ML 3 ML PEN SC SCH ×5 (07:55→21:01)
[2019-12-08] MEDS ORDERED: STOP ORDER: D/C INSULIN DRIP ONE (08:00)
[2019-12-08 08:10] LABS: Estimated Average Glucose 324 mg/dl; Hemoglobin A1C 12.9 % (4.5-5.6)
--- NOTE | 2019-12-08 08:59 | Hospitalist Progress Note ---
Date of Service December 08, 2019 Assessment & Plan (1) DKA (diabetic ketoacidoses): Pt admitted with weakness, nausea, weight loss, polyuria, polydipsia Found to be in DKA with BSG >1000, pH 7.25, +ketones, AG 20 , HCO3 14 Pt was admitted to ICU treated with IV insulin gtt , IV fluid per DKA protocol -no prior hx of diabetes -HbA1c 12.9% on 12/08/2019 - symptoms resolved after IV insulin gtt and BSG improvement - IV insulin gtt D/C'ed this AM, transitioned to Sub q insulin with basal Lantus - nursing educator and pharmacy for glycemic management - pt will need long-tern insulin treatment and go home with insulin sc, at this point difficult to assess proper insulin doses, christian. d/t pt's body habitus, BMI ~15 - pt will need close follow up for diabetes management - BILL 65 Abs and ICA antibodies pending Severe malnutrition in setting of undiagnosed Diabetes presenting in DKA - pt's BMI ~15 - says she was always thin but most recently lost sign. amount of weight (d/t uncontrolled DM) - weight should improve in the future after insulin treatment and DM control - should follow up w/ PCP regarding weight management (2) Tachycardia: - due to dehydration , DKA - reported tachycardia w/ ambulation - received 2 L of NS yesterday in the ED - will give additional IVF LR - says she also has hx of episodical tachycardia, previously evaluated w/ cardiology - no treatment needed at that time - monitor on tele - no sign of infection Dispo: ICU, will downgrade to PCU w/ tele Subjective IV insulin stopped this AM, transition to Lantus subq. Pt is sitting up in bed in no acute distress, feels much better since the admission. Family at the bedside. Pt denies any fever, chills, palpitations, chest pain, shortness of breath, abd. pain, nausea or vomiting. HbA1c 12.9% Review of Systems Review of Systems: All systems reviewed & are unremarkable except as noted in HPI & below Constitutional: no fever and no chills Respiratory: no cough, no chest congestion, no dyspnea and no pain on inspiration Cardiovascular: no chest pain, no dyspnea on exertion and no edema Gastrointestinal: no abdominal pain, no nausea and no vomiting Physical Exam Physical Exam: Young thin female laying in bed in NAD Constitutional: WD/WN, vitals as above + ill appearing and + thin Eyes: PERRL, conjunctivae normal, anicteric sclerae EOM intact bilaterally ENMT: external ear and nose normal, oropharynx normal Mouth: + dentition abnormality (very poor dentition, pt wears dentures) Neck: trachea midline, no thyromegaly normal visual inspection Respiratory: normal respiratory effort, lungs clear to auscultation Auscultation: no crackles, no rhonchi and no wheezes Cardiovascular: RRR, no murmur, no edema Heart Sounds: no murmur Chest (Breasts): Chest: normal inspection of chest Gastrointestinal (Abdomen): Inspection/Auscultation: abdomen normal to inspection and normal bowel sounds Percussion/Palpation: abdomen soft; abdomen nontender and no guarding Musculoskeletal: no cyanosis or clubbing, extremities motor strength 5/5 Head/Neck/Chest: normocephalic, head atraumatic and neck supple Extremities: extremities normal to inspection Skin: no rashes, warm and dry Neurologic: PERRL, EOMI, accommodation nl, no face palsy, no dysarthria moves all extremities Speech / Cognition: normal speech Psychiatric: A+Ox3, euthymic affect Speech: normal rate/rhythm/volume of speech Genitourinary: no CVA tenderness Lymphatic: no lymphedema Results & Data Vital Signs (Past 12 Hours) Vital Signs Temp Pulse Resp BP Pulse Ox 12/08/19 06:09 89 20 111/82 97 12/08/19 04:51 84 13 120/70 100 12/08/19 03:51 36.8 C 93 H 16 106/73 100 12/08/19 02:51 88 16 118/72 100 12/08/19 01:51 94 H 16 113/67 98 12/08/19 00:51 105 H 17 113/76 99 12/08/19 00:00 113 H 12/07/19 23:57 37.2 C 109 H 20 120/74 100 12/07/19 23:51 97 H 16 113/70 100 12/07/19 22:51 104 H 18 102/72 98 12/07/19 21:51 96 H 17 96/64 L 99 Laboratory Results 12/08/19 12/08/19 12/08/19 Range/Units 07:37 06:04 04:52 WBC (4.8-10.8) K/uL RBC (4.2-5.4) M/uL Hgb (12.0-16.0) g/dL Hct (37-47) % MCV (80-100) fL MCH (25-34) pg MCHC (32-36) g/dL RDW Std Deviation (36.4-46.3) fL RDW Coeff of Bao (11.5-14.5) % Plt Count (130-400) K/uL MPV (7.4-10.4) fL Immature Gran % (Auto) % Neut % (Auto) % Lymph % (Auto) % Elliott % (Auto) % Eos % (Auto) % Baso % (Auto) % Immature Gran # (Auto) (0.00-0.02) K/uL Neut # (Auto) (1.4-6.5) K/uL Lymph # (Auto) (1.2-3.4) K/uL Elliott # (Auto) (0.11-0.59) K/uL Eos # (Auto) (0-0.5) K/uL Baso # (Auto) (0-0.2) K/uL VBG pH VBG pCO2 VBG pO2 VBG HCO3 VBG O2 Saturation VBG Base Excess Barometric Pressure Sodium (136-145) mmol/L Potassium (3.5-5.1) mmol/L Chloride (98-107) mmol/L Carbon Dioxide (21-32) mmol/L Anion Gap (3-11) BUN (7-18) mg/dl Creatinine (0.6-1.2) mg/dl Est Cr Clr Drug Dosing ml/min Est GFR ( Amer) Est GFR (Non-Af Amer) BUN/Creatinine Ratio (10-20) Glucose (70-99) mg/dl POC Glucose 184 H 247 H 191 H (70-99) Estimat Average Glucose mg/dl Hemoglobin A1c (4.5-5.6) % Calcium (8.5-10.1) mg/dl Phosphorus (2.5-4.9) mg/dl Magnesium (1.8-2.4) mg/dl Total Bilirubin (0.2-1) mg/dl AST (15-37) U/L ALT (12-78) U/L Alkaline Phosphatase (45-117) U/L Troponin I (0-0.045) ng/ml Total Protein (6.4-8.2) gm/dl Albumin (3.4-5.0) gm/dl Globulin (2.5-4.0) gm/dl Albumin/Globulin Ratio (0.9-2) Prealbumin (20-40) mg/dl Lipase (73-393) U/L Folate (>5.38) ng/ml Beta-Hydroxybutyric Acd (0.2-2.81) mg/dl TSH (0.300-4.500) uIu/ml Nasal Screen MRSA (PCR) (Negative) 12/08/19 12/08/19 12/08/19 Range/Units 04:11 03:29 03:09 WBC (4.8-10.8) K/uL RBC (4.2-5.4) M/uL Hgb (12.0-16.0) g/dL Hct (37-47) % MCV (80-100) fL MCH (25-34) pg MCHC (32-36) g/dL RDW Std Deviation (36.4-46.3) fL RDW Coeff of Bao (11.5-14.5) % Plt Count (130-400) K/uL MPV (7.4-10.4) fL Immature Gran % (Auto) % Neut % (Auto) % Lymph % (Auto) % Elliott % (Auto) % Eos % (Auto) % Baso % (Auto) % Immature Gran # (Auto) (0.00-0.02) K/uL Neut # (Auto) (1.4-6.5) K/uL Lymph # (Auto) (1.2-3.4) K/uL Elliott # (Auto) (0.11-0.59) K/uL Eos # (Auto) (0-0.5) K/uL Baso # (Auto) (0-0.2) K/uL VBG pH VBG pCO2 VBG pO2 VBG HCO3 VBG O2 Saturation VBG Base Excess Barometric Pressure Sodium (136-145) mmol/L Potassium (3.5-5.1) mmol/L Chloride (98-107) mmol/L Carbon Dioxide (21-32) mmol/L Anion Gap (3-11) BUN (7-18) mg/dl Creatinine (0.6-1.2) mg/dl Est Cr Clr Drug Dosing ml/min Est GFR ( Amer) Est GFR (Non-Af Amer) BUN/Creatinine Ratio (10-20) Glucose (70-99) mg/dl POC Glucose 115 H 106 H 111 H (70-99) Estimat Average Glucose mg/dl Hemoglobin A1c (4.5-5.6) % Calcium (8.5-10.1) mg/dl Phosphorus (2.5-4.9) mg/dl Magnesium (1.8-2.4) mg/dl Total Bilirubin (0.2-1) mg/dl AST (15-37) U/L ALT (12-78) U/L Alkaline Phosphatase (45-117) U/L Troponin I (0-0.045) ng/ml Total Protein (6.4-8.2) gm/dl Albumin (3.4-5.0) gm/dl Globulin (2.5-4.0) gm/dl Albumin/Globulin Ratio (0.9-2) Prealbumin (20-40) mg/dl Lipase (73-393) U/L Folate (>5.38) ng/ml Beta-Hydroxybutyric Acd (0.2-2.81) mg/dl TSH (0.300-4.500) uIu/ml Nasal Screen MRSA (PCR) (Negative) 12/08/19 12/08/19 12/08/19 Range/Units 03:07 03:07 03:06 WBC 12.66 H (4.8-10.8) K/uL RBC 5.09 (4.2-5.4) M/uL Hgb 12.3 (12.0-16.0) g/dL Hct 38.6 (37-47) % MCV 75.8 L (80-100) fL MCH 24.2 L (25-34) pg MCHC 31.9 L (32-36) g/dL RDW Std Deviation 45.1 (36.4-46.3) fL RDW Coeff of Bao 17.4 H (11.5-14.5) % Plt Count 396 (130-400) K/uL MPV 10.4 (7.4-10.4) fL Immature Gran % (Auto) 0.2 % Neut % (Auto) 64.6 % Lymph % (Auto) 25.1 % Elliott % (Auto) 9.4 % Eos % (Auto) 0.5 % Baso % (Auto) 0.2 % Immature Gran # (Auto) 0.03 H (0.00-0.02) K/uL Neut # (Auto) 8.17 H (1.4-6.5) K/uL Lymph # (Auto) 3.18 (1.2-3.4) K/uL Elliott # (Auto) 1.19 H (0.11-0.59) K/uL Eos # (Auto) 0.06 (0-0.5) K/uL Baso # (Auto) 0.03 (0-0.2) K/uL VBG pH VBG pCO2 VBG pO2 VBG HCO3 VBG O2 Saturation VBG Base Excess Barometric Pressure Sodium (136-145) mmol/L Potassium (3.5-5.1) mmol/L Chloride (98-107) mmol/L Carbon Dioxide (21-32) mmol/L Anion Gap (3-11) BUN (7-18) mg/dl Creatinine (0.6-1.2) mg/dl Est Cr Clr Drug Dosing ml/min Est GFR ( Amer) Est GFR (Non-Af Amer) BUN/Creatinine Ratio (10-20) Glucose (70-99) mg/dl POC Glucose (70-99) Estimat Average Glucose 324 mg/dl Hemoglobin A1c 12.9 H (4.5-5.6) % Calcium (8.5-10.1) mg/dl Phosphorus (2.5-4.9) mg/dl Magnesium (1.8-2.4) mg/dl Total Bilirubin (0.2-1) mg/dl AST (15-37) U/L ALT (12-78) U/L Alkaline Phosphatase (45-117) U/L Troponin I (0-0.045) ng/ml Total Protein (6.4-8.2) gm/dl Albumin (3.4-5.0) gm/dl Globulin (2.5-4.0) gm/dl Albumin/Globulin Ratio (0.9-2) Prealbumin (20-40) mg/dl Lipase (73-393) U/L Folate 12.71 (>5.38) ng/ml Beta-Hydroxybutyric Acd (0.2-2.81) mg/dl TSH (0.300-4.500) uIu/ml Nasal Screen MRSA (PCR) (Negative) 12/08/19 12/08/19 12/08/19 Range/Units 03:06 02:01 00:59 WBC (4.8-10.8) K/uL RBC (4.2-5.4) M/uL Hgb (12.0-16.0) g/dL Hct (37-47) % MCV (80-100) fL MCH (25-34) pg MCHC (32-36) g/dL RDW Std Deviation (36.4-46.3) fL RDW Coeff of Bao (11.5-14.5) % Plt Count (130-400) K/uL MPV (7.4-10.4) fL Immature Gran % (Auto) % Neut % (Auto) % Lymph % (Auto) % Elliott % (Auto) % Eos % (Auto) % Baso % (Auto) % Immature Gran # (Auto) (0.00-0.02) K/uL Neut # (Auto) (1.4-6.5) K/uL Lymph # (Auto) (1.2-3.4) K/uL Elliott # (Auto) (0.11-0.59) K/uL Eos # (Auto) (0-0.5) K/uL Baso # (Auto) (0-0.2) K/uL VBG pH VBG pCO2 VBG pO2 VBG HCO3 VBG O2 Saturation VBG Base Excess Barometric Pressure Sodium 138 (136-145) mmol/L Potassium 4.0 (3.5-5.1) mmol/L Chloride 112 H (98-107) mmol/L Carbon Dioxide 24 (21-32) mmol/L Anion Gap 2.0 L (3-11) BUN 20 H (7-18) mg/dl Creatinine 0.77 (0.6-1.2) mg/dl Est Cr Clr Drug Dosing 57.3 ml/min Est GFR ( Amer) 112.7 Est GFR (Non-Af Amer) 97.3 BUN/Creatinine Ratio 25.7 H (10-20) Glucose 106 H (70-99) mg/dl POC Glucose 143 H 170 H (70-99) Estimat Average Glucose mg/dl Hemoglobin A1c (4.5-5.6) % Calcium 8.6 (8.5-10.1) mg/dl Phosphorus (2.5-4.9) mg/dl Magnesium (1.8-2.4) mg/dl Total Bilirubin (0.2-1) mg/dl AST (15-37) U/L ALT (12-78) U/L Alkaline Phosphatase (45-117) U/L Troponin I (0-0.045) ng/ml Total Protein (6.4-8.2) gm/dl Albumin (3.4-5.0) gm/dl Globulin (2.5-4.0) gm/dl Albumin/Globulin Ratio (0.9-2) Prealbumin 16.5 L (20-40) mg/dl Lipase (73-393) U/L Folate (>5.38) ng/ml Beta-Hydroxybutyric Acd 6.74 H (0.2-2.81) mg/dl TSH 0.501 (0.300-4.500) uIu/ml Nasal Screen MRSA (PCR) (Negative) 12/08/19 12/07/19 12/07/19 Range/Units 00:03 23:06 23:06 WBC (4.8-10.8) K/uL RBC (4.2-5.4) M/uL Hgb (12.0-16.0) g/dL Hct (37-47) % MCV (80-100) fL MCH (25-34) pg MCHC (32-36) g/dL RDW Std Deviation (36.4-46.3) fL RDW Coeff of Bao (11.5-14.5) % Plt Count (130-400) K/uL MPV (7.4-10.4) fL Immature Gran % (Auto) % Neut % (Auto) % Lymph % (Auto) % Elliott % (Auto) % Eos % (Auto) % Baso % (Auto) % Immature Gran # (Auto) (0.00-0.02) K/uL Neut # (Auto) (1.4-6.5) K/uL Lymph # (Auto) (1.2-3.4) K/uL Elliott # (Auto) (0.11-0.59) K/uL Eos # (Auto) (0-0.5) K/uL Baso # (Auto) (0-0.2) K/uL VBG pH 7.38 VBG pCO2 36 L VBG pO2 55 VBG HCO3 21 VBG O2 Saturation 85.4 VBG Base Excess -3.9 Barometric Pressure 729.4 Sodium 137 (136-145) mmol/L Potassium 4.3 (3.5-5.1) mmol/L Chloride 110 H (98-107) mmol/L Carbon Dioxide 21 (21-32) mmol/L Anion Gap 6.0 (3-11) BUN 19 H (7-18) mg/dl Creatinine 0.88 (0.6-1.2) mg/dl Est Cr Clr Drug Dosing 50.2 ml/min Est GFR ( Amer) 95.9 Est GFR (Non-Af Amer) 82.8 BUN/Creatinine Ratio 22.0 H (10-20) Glucose 208 H (70-99) mg/dl POC Glucose 185 H (70-99) Estimat Average Glucose mg/dl Hemoglobin A1c (4.5-5.6) % Calcium 8.4 L (8.5-10.1) mg/dl Phosphorus (2.5-4.9) mg/dl Magnesium (1.8-2.4) mg/dl Total Bilirubin (0.2-1) mg/dl AST (15-37) U/L ALT (12-78) U/L Alkaline Phosphatase (45-117) U/L Troponin I (0-0.045) ng/ml Total Protein (6.4-8.2) gm/dl Albumin (3.4-5.0) gm/dl Globulin (2.5-4.0) gm/dl Albumin/Globulin Ratio (0.9-2) Prealbumin (20-40) mg/dl Lipase (73-393) U/L Folate (>5.38) ng/ml Beta-Hydroxybutyric Acd (0.2-2.81) mg/dl TSH (0.300-4.500) uIu/ml Nasal Screen MRSA (PCR) (Negative) 01/07/20 01/07/20 01/07/20 Range/Units 22:55 21:55 20:56 WBC (4.8-10.8) K/uL RBC (4.2-5.4) M/uL Hgb (12.0-16.0) g/dL Hct (37-47) % MCV (80-100) fL MCH (25-34) pg MCHC (32-36) g/dL RDW Std Deviation (36.4-46.3) fL RDW Coeff of Bao (11.5-14.5) % Plt Count (130-400) K/uL MPV (7.4-10.4) fL Immature Gran % (Auto) % Neut % (Auto) % Lymph % (Auto) % Elliott % (Auto) % Eos % (Auto) % Baso % (Auto) % Immature Gran # (Auto) (0.00-0.02) K/uL Neut # (Auto) (1.4-6.5) K/uL Lymph # (Auto) (1.2-3.4) K/uL Elliott # (Auto) (0.11-0.59) K/uL Eos # (Auto) (0-0.5) K/uL Baso # (Auto) (0-0.2) K/uL VBG pH VBG pCO2 VBG pO2 VBG HCO3 VBG O2 Saturation VBG Base Excess Barometric Pressure Sodium (136-145) mmol/L Potassium (3.5-5.1) mmol/L Chloride (98-107) mmol/L Carbon Dioxide (21-32) mmol/L Anion Gap (3-11) BUN (7-18) mg/dl Creatinine (0.6-1.2) mg/dl Est Cr Clr Drug Dosing ml/min Est GFR ( Amer) Est GFR (Non-Af Amer) BUN/Creatinine Ratio (10-20) Glucose (70-99) mg/dl POC Glucose 219 H 304 H* 354 H* (70-99) Estimat Average Glucose mg/dl Hemoglobin A1c (4.5-5.6) % Calcium (8.5-10.1) mg/dl Phosphorus (2.5-4.9) mg/dl Magnesium (1.8-2.4) mg/dl Total Bilirubin (0.2-1) mg/dl AST (15-37) U/L ALT (12-78) U/L Alkaline Phosphatase (45-117) U/L Troponin I (0-0.045) ng/ml Total Protein (6.4-8.2) gm/dl Albumin (3.4-5.0) gm/dl Globulin (2.5-4.0) gm/dl Albumin/Globulin Ratio (0.9-2) Prealbumin (20-40) mg/dl Lipase (73-393) U/L Folate (>5.38) ng/ml Beta-Hydroxybutyric Acd (0.2-2.81) mg/dl TSH (0.300-4.500) uIu/ml Nasal Screen MRSA (PCR) (Negative) 12/07/19 12/07/19 12/07/19 Range/Units 19:56 19:40 19:31 WBC (4.8-10.8) K/uL RBC (4.2-5.4) M/uL Hgb (12.0-16.0) g/dL Hct (37-47) % MCV (80-100) fL MCH (25-34) pg MCHC (32-36) g/dL RDW Std Deviation (36.4-46.3) fL RDW Coeff of Bao (11.5-14.5) % Plt Count (130-400) K/uL MPV (7.4-10.4) fL Immature Gran % (Auto) % Neut % (Auto) % Lymph % (Auto) % Elliott % (Auto) % Eos % (Auto) % Baso % (Auto) % Immature Gran # (Auto) (0.00-0.02) K/uL Neut # (Auto) (1.4-6.5) K/uL Lymph # (Auto) (1.2-3.4) K/uL Elliott # (Auto) (0.11-0.59) K/uL Eos # (Auto) (0-0.5) K/uL Baso # (Auto) (0-0.2) K/uL VBG pH 7.39 VBG pCO2 31 L VBG pO2 68 VBG HCO3 18 VBG O2 Saturation 93.1 VBG Base Excess -5.9 Barometric Pressure 730.2 Sodium 135 L D (136-145) mmol/L Potassium 4.1 D (3.5-5.1) mmol/L Chloride 107 (98-107) mmol/L Carbon Dioxide 20 L (21-32) mmol/L Anion Gap 8.0 (3-11) BUN 21 H (7-18) mg/dl Creatinine 1.06 (0.6-1.2) mg/dl Est Cr Clr Drug Dosing 41.6 ml/min Est GFR ( Amer) 76.6 Est GFR (Non-Af Amer) 66.1 BUN/Creatinine Ratio 19.6 (10-20) Glucose 409 H* (70-99) mg/dl POC Glucose 384 H* (70-99) Estimat Average Glucose mg/dl Hemoglobin A1c (4.5-5.6) % Calcium 8.9 (8.5-10.1) mg/dl Phosphorus (2.5-4.9) mg/dl Magnesium (1.8-2.4) mg/dl Total Bilirubin (0.2-1) mg/dl AST (15-37) U/L ALT (12-78) U/L Alkaline Phosphatase (45-117) U/L Troponin I (0-0.045) ng/ml Total Protein (6.4-8.2) gm/dl Albumin (3.4-5.0) gm/dl Globulin (2.5-4.0) gm/dl Albumin/Globulin Ratio (0.9-2) Prealbumin (20-40) mg/dl Lipase (73-393) U/L Folate (>5.38) ng/ml Beta-Hydroxybutyric Acd 29.26 H (0.2-2.81) mg/dl TSH (0.300-4.500) uIu/ml Nasal Screen MRSA (PCR) (Negative) 12/07/19 12/07/19 12/07/19 Range/Units 19:25 18:57 17:57 WBC (4.8-10.8) K/uL RBC (4.2-5.4) M/uL Hgb (12.0-16.0) g/dL Hct (37-47) % MCV (80-100) fL MCH (25-34) pg MCHC (32-36) g/dL RDW Std Deviation (36.4-46.3) fL RDW Coeff of Bao (11.5-14.5) % Plt Count (130-400) K/uL MPV (7.4-10.4) fL Immature Gran % (Auto) % Neut % (Auto) % Lymph % (Auto) % Elliott % (Auto) % Eos % (Auto) % Baso % (Auto) % Immature Gran # (Auto) (0.00-0.02) K/uL Neut # (Auto) (1.4-6.5) K/uL Lymph # (Auto) (1.2-3.4) K/uL Elliott # (Auto) (0.11-0.59) K/uL Eos # (Auto) (0-0.5) K/uL Baso # (Auto) (0-0.2) K/uL VBG pH VBG pCO2 VBG pO2 VBG HCO3 VBG O2 Saturation VBG Base Excess Barometric Pressure Sodium (136-145) mmol/L Potassium (3.5-5.1) mmol/L Chloride (98-107) mmol/L Carbon Dioxide (21-32) mmol/L Anion Gap (3-11) BUN (7-18) mg/dl Creatinine (0.6-1.2) mg/dl Est Cr Clr Drug Dosing ml/min Est GFR ( Amer) Est GFR (Non-Af Amer) BUN/Creatinine Ratio (10-20) Glucose 560 H* (70-99) mg/dl POC Glucose 487 H* (70-99) Estimat Average Glucose mg/dl Hemoglobin A1c (4.5-5.6) % Calcium (8.5-10.1) mg/dl Phosphorus (2.5-4.9) mg/dl Magnesium (1.8-2.4) mg/dl Total Bilirubin (0.2-1) mg/dl AST (15-37) U/L ALT (12-78) U/L Alkaline Phosphatase (45-117) U/L Troponin I (0-0.045) ng/ml Total Protein (6.4-8.2) gm/dl Albumin (3.4-5.0) gm/dl Globulin (2.5-4.0) gm/dl Albumin/Globulin Ratio (0.9-2) Prealbumin (20-40) mg/dl Lipase (73-393) U/L Folate (>5.38) ng/ml Beta-Hydroxybutyric Acd 60.84 H (0.2-2.81) mg/dl TSH (0.300-4.500) uIu/ml Nasal Screen MRSA (PCR) Negative (Negative) 12/07/19 12/07/19 12/07/19 Range/Units 17:06 16:02 16:02 WBC (4.8-10.8) K/uL RBC (4.2-5.4) M/uL Hgb (12.0-16.0) g/dL Hct (37-47) % MCV (80-100) fL MCH (25-34) pg MCHC (32-36) g/dL RDW Std Deviation (36.4-46.3) fL RDW Coeff of Bao (11.5-14.5) % Plt Count (130-400) K/uL MPV (7.4-10.4) fL Immature Gran % (Auto) % Neut % (Auto) % Lymph % (Auto) % Elliott % (Auto) % Eos % (Auto) % Baso % (Auto) % Immature Gran # (Auto) (0.00-0.02) K/uL Neut # (Auto) (1.4-6.5) K/uL Lymph # (Auto) (1.2-3.4) K/uL Elliott # (Auto) (0.11-0.59) K/uL Eos # (Auto) (0-0.5) K/uL Baso # (Auto) (0-0.2) K/uL VBG pH 7.25 L Cancelled VBG pCO2 30 L Cancelled VBG pO2 52 Cancelled VBG HCO3 13 Cancelled VBG O2 Saturation 81.1 Cancelled VBG Base Excess -13.2 Cancelled Barometric Pressure 729.5 Cancelled Sodium (136-145) mmol/L Potassium (3.5-5.1) mmol/L Chloride (98-107) mmol/L Carbon Dioxide (21-32) mmol/L Anion Gap (3-11) BUN (7-18) mg/dl Creatinine (0.6-1.2) mg/dl Est Cr Clr Drug Dosing ml/min Est GFR ( Amer) Est GFR (Non-Af Amer) BUN/Creatinine Ratio (10-20) Glucose 831 H* (70-99) mg/dl POC Glucose (70-99) Estimat Average Glucose mg/dl Hemoglobin A1c (4.5-5.6) % Calcium (8.5-10.1) mg/dl Phosphorus (2.5-4.9) mg/dl Magnesium (1.8-2.4) mg/dl Total Bilirubin (0.2-1) mg/dl AST (15-37) U/L ALT (12-78) U/L Alkaline Phosphatase (45-117) U/L Troponin I (0-0.045) ng/ml Total Protein (6.4-8.2) gm/dl Albumin (3.4-5.0) gm/dl Globulin (2.5-4.0) gm/dl Albumin/Globulin Ratio (0.9-2) Prealbumin (20-40) mg/dl Lipase (73-393) U/L Folate (>5.38) ng/ml Beta-Hydroxybutyric Acd 82.37 H (0.2-2.81) mg/dl TSH (0.300-4.500) uIu/ml Nasal Screen MRSA (PCR) (Negative) 12/07/19 12/07/19 12/07/19 Range/Units 14:36 14:36 14:36 WBC 8.33 (4.8-10.8) K/uL RBC 5.33 (4.2-5.4) M/uL Hgb 12.8 (12.0-16.0) g/dL Hct 41.0 (37-47) % MCV 76.9 L (80-100) fL MCH 24.0 L (25-34) pg MCHC 31.2 L (32-36) g/dL RDW Std Deviation 46.6 H (36.4-46.3) fL RDW Coeff of Bao 17.6 H (11.5-14.5) % Plt Count 430 H (130-400) K/uL MPV 11.4 H (7.4-10.4) fL Immature Gran % (Auto) 0.5 % Neut % (Auto) 88.1 % Lymph % (Auto) 6.5 % Elliott % (Auto) 4.8 % Eos % (Auto) 0.0 % Baso % (Auto) 0.1 % Immature Gran # (Auto) 0.04 H (0.00-0.02) K/uL Neut # (Auto) 7.34 H (1.4-6.5) K/uL Lymph # (Auto) 0.54 L (1.2-3.4) K/uL Elliott # (Auto) 0.40 (0.11-0.59) K/uL Eos # (Auto) 0.00 (0-0.5) K/uL Baso # (Auto) 0.01 (0-0.2) K/uL VBG pH VBG pCO2 VBG pO2 VBG HCO3 VBG O2 Saturation VBG Base Excess Barometric Pressure Sodium 122 L (136-145) mmol/L Potassium 5.2 H (3.5-5.1) mmol/L Chloride 88 L (98-107) mmol/L Carbon Dioxide 14 L (21-32) mmol/L Anion Gap 20.0 H (3-11) BUN 23 H (7-18) mg/dl Creatinine 1.48 H (0.6-1.2) mg/dl Est Cr Clr Drug Dosing 25.8 ml/min Est GFR ( Amer) 51.2 Est GFR (Non-Af Amer) 44.1 BUN/Creatinine Ratio 15.5 (10-20) Glucose 1092 H* (70-99) mg/dl POC Glucose (70-99) Estimat Average Glucose mg/dl Hemoglobin A1c (4.5-5.6) % Calcium 8.6 (8.5-10.1) mg/dl Phosphorus 4.8 (2.5-4.9) mg/dl Magnesium 2.7 H (1.8-2.4) mg/dl Total Bilirubin 0.4 (0.2-1) mg/dl AST 10 L (15-37) U/L ALT 22 (12-78) U/L Alkaline Phosphatase 87 (45-117) U/L Troponin I < 0.015 (0-0.045) ng/ml Total Protein 8.0 (6.4-8.2) gm/dl Albumin 4.5 (3.4-5.0) gm/dl Globulin 3.5 (2.5-4.0) gm/dl Albumin/Globulin Ratio 1.3 (0.9-2) Prealbumin (20-40) mg/dl Lipase 88 (73-393) U/L Folate (>5.38) ng/ml Beta-Hydroxybutyric Acd 74.49 H (0.2-2.81) mg/dl TSH (0.300-4.500) uIu/ml Nasal Screen MRSA (PCR) (Negative) Medications Administered Current Inpatient Medications Acetaminophen (Tylenol) 650 mg PO Q4H PRN PRN Reason: Pain or Fever Stop: 01/06/20 19:49 Last Admin: 12/08/19 04:18 Dose: 650 mg Documented by: Dextrose (Dextrose 50%) 25 - 50 ml IV UD PRN; Protocol PRN Reason: Hypoglycemia Protocol Stop: 01/06/20 15:44 Last Admin: 12/08/19 04:36 Dose: 25 ml Documented by: Folic Acid (Folvite) 1 mg PO QAM [facility] Stop: 01/07/20 08:59 Last Admin: 12/08/19 07:48 Dose: 1 mg Documented by: Glucagon (Glucagen) 1 mg IM UD PRN; Protocol PRN Reason: Hypoglycemia Protocol Stop: 01/06/20 15:44 Glucose (Glucose 40%) 15 - 30 gm PO UD PRN; Protocol PRN Reason: Hypoglycemia Protocol Stop: 01/06/20 15:44 Glucose (Dex4 Glucose) 4 - 8 tabs PO UD PRN; Protocol PRN Reason: Hypoglycemia Protocol Stop: 01/06/20 15:44 Heparin Sodium (Porcine) (Heparin Sodium (Porcine)) 5,000 units SQ Q12 [facility] Stop: 01/07/20 08:59 Last Admin: 12/08/19 07:48 Dose: 5,000 units Documented by: Insulin Aspart (Novolog Flexpen) 0 units SC ACHS [facility] Stop: 01/07/20 07:29 Last Admin: 12/08/19 07:58 Dose: 2 units Documented by: Miscellaneous (Carbohydrates For Hypoglycemia) 15 - 30 gm PO UD PRN PRN Reason: Hypoglycemia Treatment Stop: 01/06/20 15:44 Miscellaneous (Icu Protocol For Hyperglycemia) 1 ea N/A PRN PRN; Protocol PRN Reason: Hyperglycemia Protocol Stop: 12/09/19 19:24 Miscellaneous Information (Consult Glycemic Management Pharmacy) 1 ea N/A UD PRN; Protocol PRN Reason: Consult Stop: 01/07/20 04:41 Multivitamins (Multivitamin Tab) 1 tab PO QAM [facility] Stop: 01/07/20 08:59 Last Admin: 12/08/19 07:48 Dose: 1 tab Documented by: Thiamine HCl (Vitamin B-1) [facility] [place] Stop: 01/07/20 08:59 Last Admin: 12/08/19 07:48 Dose: 100 mg Documented by: (1) DKA (diabetic ketoacidoses) Diabetes mellitus complication detail: without coma Diabetes mellitus type: other specified (including LEVY) Qualified Code(s): E13.10 - Other specified diabetes mellitus with ketoacidosis without coma
--- NOTE | 2019-12-08 10:56 | Critical Care Progress Note ---
Date of Service December 08, 2019 Assessment & Plan (1) DKA (diabetic ketoacidoses): Patient has been feeling ill since October. She was found to be in diabetic ketoacidosis. She is off the insulin drip and currently on long-acting insulin. She is hungry. His glucose is trending up a bit. Her vital signs are stable. The pharmacy is helping us adjust insulin. She appears to have very poor dentition and seems to suffer from an alcohol problem. She also smokes. I did discuss these issues with her and she is interested in changing her habits. She will need diabetes education and primary care physician. 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 She is safe to transfer to floor with telemetry. (2) Acute hyponatremia: (3) SVT (supraventricular tachycardia): (4) Diabetes: (5) Admitted to intensive care unit: Subjective Patient doing better today. No nausea or vomiting. No chest pain. Breathing well on room air. Physical Exam Constitutional: Patient is very thin. She has very poor dentition. No apparent distress. Respiratory: normal respiratory effort, lungs clear to auscultation Cardiovascular: Tachycardic. Regular rate and rhythm. No murmurs. Gastrointestinal (Abdomen): normal bowel sounds, soft, nontender, no hepatosplenomegaly Neurologic: CN's II-XI intact bilaterally Results & Data Vital Signs (Past 12 Hours) Vital Signs Temp Pulse Resp BP Pulse Ox 12/08/19 06:09 89 20 111/82 97 12/08/19 04:51 84 13 120/70 100 12/08/19 03:51 98.2 F 93 H 16 106/73 100 12/08/19 02:51 88 16 118/72 100 12/08/19 01:51 94 H 16 113/67 98 12/08/19 00:51 105 H 17 113/76 99 12/08/19 00:00 113 H 12/07/19 23:57 99.0 F 109 H 20 120/74 100 12/07/19 23:51 97 H 16 113/70 100 Coding Level of Care Code 33135 Subseq Hosp Care Lvl 2 Diagnoses DKA (diabetic ketoacidoses) E13.10 Diabetes mellitus complication detail: without coma Diabetes mellitus type: other specified (including LEVY) Acute hyponatremia E87.1 SVT (supraventricular tachycardia) I47.1 Diabetes E10.69 Diabetes mellitus type: type 1 Diabetes mellitus complication status: with other specified complication Admitted to intensive care unit Z78.9 (1) DKA (diabetic ketoacidoses) Diabetes mellitus complication detail: without coma Diabetes mellitus type: other specified (including LEVY) Qualified Code(s): E13.10 - Other specified diabetes mellitus with ketoacidosis without coma (2) Diabetes Diabetes mellitus type: type 1 Diabetes mellitus complication status: with other specified complication Qualified Code(s): E10.69 - Type 1 diabetes mellitus with other specified complication
[2019-12-08] MEDS: LACTATED RINGER'S 1,000 ML IV SCH ×2 (11:48→19:46)
--- NOTE | 2019-12-08 12:36 | Pharmacy Report ---
Pharmacy Glycemic Short Note 2 - Date of Service December 08, 2019 - Glycemic Short BSG Results (Last 24 hours): 12/07/19 12/07/19 12/07/19 14:36 16:02 16:19 Glucose 1092 H* 831 H* POC Glucose > 600 H* 12/07/19 12/07/19 12/07/19 16:22 17:26 17:29 Glucose POC Glucose > 600 H* > 600 H* > 600 H* 12/07/19 12/07/19 12/07/19 17:57 18:57 19:31 Glucose 560 H* 409 H* POC Glucose 487 H* 12/07/19 12/07/19 12/07/19 19:56 20:56 21:55 Glucose POC Glucose 384 H* 354 H* 304 H* 12/07/19 12/07/19 12/08/19 22:55 23:06 00:03 Glucose 208 H POC Glucose 219 H 185 H 12/08/19 12/08/19 12/08/19 00:59 02:01 03:06 Glucose 106 H POC Glucose 170 H 143 H 12/08/19 12/08/19 12/08/19 03:09 03:29 04:11 Glucose POC Glucose 111 H 106 H 115 H 12/08/19 12/08/19 12/08/19 04:52 06:04 07:37 Glucose POC Glucose 191 H 247 H 184 H 12/08/19 12/08/19 10:44 11:34 Glucose POC Glucose 266 H 242 H OUTPATIENT ANTIDIABETIC REGIMEN: * no prior h/o DM * A1c = 12.9 12/08/19 ASSESSMENT: * Patient presented to ER with c/o tachycardia, NV, dizziness and malaise * Moderate DKA evident on initial labs: GLU 1092, AG 20, Bicarb 14, vpH 7.25, Na 122 (lucinda Na ~140) * No prior dx of DM * IV fluids and IV insulin drip initiated in the ER * This AM, AG acidosis has resolved (AG 2, Bicarb 24), patient is feeling well and eating breakfast * IV insulin drip turned off at 0800, ~ 2 hrs after receiving Lantus 5 units x 1. Gave an additional 7units x 1 in order to provide full 24 hr basal insulin requirement to increase our chances of successful transition to SQ today * Patient is of low body weight, thus insulin doses will appear small in comparison to other patients. Initial SQ regimen will be based upon weight and mod-severe stress level (moderate for basal doses, severe for correction/prandial doses) PLAN FOR INPATIENT GLYCEMIC CONTROL: * Basal insulin * Lantus 5+7 units SQ this AM, then HS per the following scale: 0 units if BSG less than 110, 3 units if BSG 110-140 , 6 units if BSG above 140 * Bolus insulin * NovoLog per scale ACHS and initially * Goal Range: Low 110 mg/dL - High 140 mg/dL * Correction Factor: 40 mg/dL/unit * Nutritional / Prandial insulin per carb ratio of 1 unit per 15 grams CHO consumed PLAN FOR DISCHARGE: * Given patient's DKA presentation and A1c, patient will require Basal/bolus SQ regimen on discharge with close f/u with PCP or Endocrinology for adjustments.
[2019-12-08] MEDS: INSULIN GLARGINE SOLOSTAR 100 UNITS/ML 3 ML PEN SC SCH (21:01)
[2019-12-09] MEDS: LACTATED RINGER'S 1,000 ML IV SCH ×2 (04:03→11:34)
[2019-12-09] MEDS: ACETAMINOPHEN 325 MG TAB PO PRN (06:26)
[2019-12-09] MEDS: INSULIN GLARGINE SOLOSTAR 100 UNITS/ML 3 ML PEN SC SCH ×2 (08:12→20:34)
[2019-12-09] MEDS: FOLIC ACID 1 MG TAB PO SCH (08:12)
[2019-12-09] MEDS: HEPARIN SOD 5,000 UNIT/0.5 ML VIAL SQ SCH ×2 (08:12→21:11)
[2019-12-09] MEDS: THIAMINE HCL 100 MG TAB PO SCH (08:12)
[2019-12-09] MEDS: MULTIVITAMIN TAB PO SCH (08:12)
[2019-12-09] MEDS: INSULIN ASPART 100 UNITS/ML 3 ML PEN SC SCH ×4 (08:13→20:34)
[2019-12-09 08:18] LABS: Hematocrit (blood only) 32.3 % (37-47); Hemoglobin 10.3 g/dL (12.0-16.0); Mean Corpuscular Hgb Conc 31.9 g/dL (32-36); Mean Corpuscular Volume 75.1 fL (80-100); Platelet Count 268 K/uL (130-400); RDW Standard Deviation 47.4 fL (36.4-46.3)
[2019-12-09 09:07] LABS: BUN Creatinine Ratio 31.8 (10-20); Calcium 8.3 mg/dl (8.5-10.1); Creatinine Clr Calc Pharmacy 91.6 ml/min; Est GFR (African American) 138.6; Est GFR (Non-African American) 119.6; Magnesium 1.9 mg/dl (1.8-2.4); Potassium 3.4 mmol/L (3.5-5.1)
[2019-12-09] MEDS ORDERED: POTASSIUM CHLORIDE 20 MEQ TABCR PO STA (09:34)
[2019-12-09] MEDS ORDERED: INSULIN GLARGINE SOLOSTAR 100 UNITS/ML 3 ML PEN SC ONE (13:15)
--- NOTE | 2019-12-09 13:41 | Pharmacy Report ---
Pharmacy Glycemic Short Note 2 - Date of Service December 09, 2019 - Glycemic Short BSG Results (Last 24 hours): 12/08/19 12/08/19 12/09/19 15:49 20:18 00:18 Glucose POC Glucose 268 H 273 H 175 H 12/09/19 12/09/19 12/09/19 07:05 08:09 11:03 Glucose 235 H POC Glucose 76 216 H OUTPATIENT ANTIDIABETIC REGIMEN: * no prior h/o DM * A1c = 12.9 12/08/19 ASSESSMENT: 12/09 * Patient successfully transitioned off insulin drip yesterday AM * BSGs elevated throughout the day yesterday, possibly due to insufficient prandial insulin and/or elevated insulin resistant in first 24 hrs following resolution DKA. If post-prandial hyperglycemia continues today, will adjust CR * Fasting AM BSG 76 this AM with 18 units basal on board - will scale back basal insulin doses. Will withhold basal AM dose and give with lunch instead when BSG above 100 12/08 * Patient presented to ER with c/o tachycardia, NV, dizziness and malaise * Moderate DKA evident on initial labs: GLU 1092, AG 20, Bicarb 14, vpH 7.25, Na 122 (lucinda Na ~140) * No prior dx of DM * IV fluids and IV insulin drip initiated in the ER * This AM, AG acidosis has resolved (AG 2, Bicarb 24), patient is feeling well and eating breakfast * IV insulin drip turned off at 0800, ~ 2 hrs after receiving Lantus 5 units x 1. Gave an additional 7units x 1 in order to provide full 24 hr basal insulin requirement to increase our chances of successful transition to SQ today * Patient is of low body weight, thus insulin doses will appear small in comparison to other patients. Initial SQ regimen will be based upon weight and mod-severe stress level (moderate for basal doses, severe for correction/prandial doses) PLAN FOR INPATIENT GLYCEMIC CONTROL: * Basal insulin * Lantus SQ BID per the following scale: 0 units if BSG less than 110, 3 units if BSG 110-140 , 6 units if BSG above 140 * Bolus insulin * NovoLog per scale ACHS and ,04 initially * Goal Range: Low 110 mg/dL - High 140 mg/dL * Correction Factor: 40 mg/dL/unit * Nutritional / Prandial insulin per carb ratio of 1 unit per 15 grams CHO consumed PLAN FOR DISCHARGE: * Given patient's DKA presentation and A1c, patient will require Basal/bolus SQ regimen on discharge with close f/u with PCP or Endocrinology for adjustments. Given patient's low body weight and little SQ fat, once daily basal insulin would be best if possible.
--- NOTE | 2019-12-09 22:30 | Hospitalist Progress Note ---
Date of Service December 09, 2019 Assessment & Plan (1) DKA (diabetic ketoacidoses): Pt admitted with weakness, nausea, weight loss, polyuria, polydipsia Found to be in DKA with BSG >1000, AG 20 , HCO3 14 Pt was admitted to ICU treated with IV insulin gtt , IV fluid per DKA protocol -no prior hx of diabetes -HbA1c 12% on 12/08/2019 - symptoms resolved after IV insulin gtt and BSG improvement - IV insulin Gtt D/ec transitioned to Sub q insulin with basal Lantus - inclusion paraeducator and pharmacy for glycemic management - pt will need long-tern insulin treatment and go home with insulin sc, at this point difficult to assess proper insulin doses, christian. d/t pt's body habitus, BMI ~15, agreed to monitor for 24 more hrs so proper adjustment and recommendation can be made - pt will need close follow up for diabetes management Hypokalemia - replace and monitor Anemia - poss. of chronic disease, and dilutional - cont. to monitor Severe malnutrition in setting of undiagnosed Diabetes presenting in DKA - pt's BMI ~15 - says she was always thin but most recently lost sign. amount of weight (d/t uncontrolled DM) - weight should improve in the future after insulin treatment and DM control - should follow up w/ PCP regarding weight management (2) Tachycardia: due to dehydration , DKA resolved after IV hydration and insulin - says she also has hx of episodical tachycardia, previously evaluated w/ cardiology - no treatment needed at that time - monitored on tele - no sign of infection Subjective Hypoglycemia in the morning. Discussed with pharmacist for glycemic control. Agreed to keep the pt for 24 more hours so that appropriate insulin regimen can be determined for discharge. Pt is sitting up in bed in no acute distress, feels much better since the admission. Tolerates food well. Denies any fever, chills, palpitations, chest pain, shortness of breath, abd. pain, nausea or vomiting. Review of Systems Review of Systems: All systems reviewed & are unremarkable except as noted in HPI & below Constitutional: + fatigue; no fever and no chills Respiratory: no cough and no dyspnea Cardiovascular: no chest pain, no dyspnea on exertion, no palpitations and no edema Gastrointestinal: no abdominal pain, no nausea and no vomiting Physical Exam Physical Exam: young female sitting up in bed, in no acute distress Constitutional: WD/WN, vitals as above + ill appearing and + thin Eyes: PERRL, conjunctivae normal, anicteric sclerae EOM intact bilaterally ENMT: external ear and nose normal, oropharynx normal very poor dentition, patient wears dentures Neck: trachea midline, no thyromegaly normal visual inspection Respiratory: normal respiratory effort, lungs clear to auscultation Auscultation: no crackles, no rhonchi and no wheezes Cardiovascular: RRR, no murmur, no edema Heart Sounds: no murmur Chest (Breasts): Chest: normal inspection of chest Gastrointestinal (Abdomen): Inspection/Auscultation: abdomen normal to inspection and normal bowel sounds Percussion/Palpation: abdomen soft; abdomen nontender and no guarding Musculoskeletal: no cyanosis or clubbing, extremities motor strength 5/5 Head/Neck/Chest: normocephalic, head atraumatic and neck supple Extremities: extremities normal to inspection Skin: no rashes, warm and dry Neurologic: PERRL, EOMI, accommodation nl, no face palsy, no dysarthria moves all extremities Speech / Cognition: normal speech Psychiatric: A+Ox3, euthymic affect Speech: normal rate/rhythm/volume of speech Genitourinary: no CVA tenderness Lymphatic: no lymphedema Results & Data Vital Signs (Past 12 Hours) Vital Signs Temp Pulse Resp BP Pulse Ox 12/09/19 15:10 36.8 C 87 19 116/76 100 Laboratory Results 12/09/19 12/09/19 12/09/19 Range/Units 20:08 16:46 11:03 WBC (4.8-10.8) K/uL RBC (4.2-5.4) M/uL Hgb (12.0-16.0) g/dL Hct (37-47) % MCV (80-100) fL MCH (25-34) pg MCHC (32-36) g/dL RDW Std Deviation (36.4-46.3) fL RDW Coeff of Bao (11.5-14.5) % Plt Count (130-400) K/uL MPV (7.4-10.4) fL Sodium (136-145) mmol/L Potassium (3.5-5.1) mmol/L Chloride (98-107) mmol/L Carbon Dioxide (21-32) mmol/L Anion Gap (3-11) BUN (7-18) mg/dl Creatinine (0.6-1.2) mg/dl Est Cr Clr Drug Dosing ml/min Est GFR ( Amer) Est GFR (Non-Af Amer) BUN/Creatinine Ratio (10-20) Glucose (70-99) mg/dl POC Glucose 195 H 189 H 216 H (70-99) Calcium (8.5-10.1) mg/dl Magnesium (1.8-2.4) mg/dl 12/09/19 12/09/19 12/09/19 Range/Units 08:09 08:09 07:05 WBC 6.20 (4.8-10.8) K/uL RBC 4.30 (4.2-5.4) M/uL Hgb 10.3 L (12.0-16.0) g/dL Hct 32.3 L (37-47) % MCV 75.1 L (80-100) fL MCH 24.0 L (25-34) pg MCHC 31.9 L (32-36) g/dL RDW Std Deviation 47.4 H (36.4-46.3) fL RDW Coeff of Bao 18.0 H (11.5-14.5) % Plt Count 268 (130-400) K/uL MPV 10.0 (7.4-10.4) fL Sodium 139 (136-145) mmol/L Potassium 3.4 L (3.5-5.1) mmol/L Chloride 107 (98-107) mmol/L Carbon Dioxide 27 (21-32) mmol/L Anion Gap 5.0 (3-11) BUN 17 (7-18) mg/dl Creatinine 0.53 L (0.6-1.2) mg/dl Est Cr Clr Drug Dosing 91.6 ml/min Est GFR ( Amer) 138.6 Est GFR (Non-Af Amer) 119.6 BUN/Creatinine Ratio 31.8 H (10-20) Glucose 235 H (70-99) mg/dl POC Glucose 76 (70-99) Calcium 8.3 L (8.5-10.1) mg/dl Magnesium 1.9 (1.8-2.4) mg/dl 12/09/19 Range/Units 00:18 WBC (4.8-10.8) K/uL RBC (4.2-5.4) M/uL Hgb (12.0-16.0) g/dL Hct (37-47) % MCV (80-100) fL MCH (25-34) pg MCHC (32-36) g/dL RDW Std Deviation (36.4-46.3) fL RDW Coeff of Bao (11.5-14.5) % Plt Count (130-400) K/uL MPV (7.4-10.4) fL Sodium (136-145) mmol/L Potassium (3.5-5.1) mmol/L Chloride (98-107) mmol/L Carbon Dioxide (21-32) mmol/L Anion Gap (3-11) BUN (7-18) mg/dl Creatinine (0.6-1.2) mg/dl Est Cr Clr Drug Dosing ml/min Est GFR ( Amer) Est GFR (Non-Af Amer) BUN/Creatinine Ratio (10-20) Glucose (70-99) mg/dl POC Glucose 175 H (70-99) Calcium (8.5-10.1) mg/dl Magnesium (1.8-2.4) mg/dl Medications Administered Current Inpatient Medications Acetaminophen (Tylenol) 650 mg PO Q4H PRN PRN Reason: Pain or Fever Stop: 01/06/20 19:49 Last Admin: 12/09/19 06:26 Dose: 650 mg Documented by: Dextrose (Dextrose 50%) 25 - 50 ml IV UD PRN; Protocol PRN Reason: Hypoglycemia Protocol Stop: 01/06/20 15:44 Last Admin: 12/08/19 04:36 Dose: 25 ml Documented by: F[facility] (Folvite) [facility] [place] Stop: 01/07/20 08:59 Last Admin: 12/09/19 08:12 Dose: 1 mg Documented by: Glucagon (Glucagen) 1 mg IM UD PRN; Protocol PRN Reason: Hypoglycemia Protocol Stop: 01/06/20 15:44 Glucose (Glucose 40%) 15 - 30 gm PO UD PRN; Protocol PRN Reason: Hypoglycemia Protocol Stop: 01/06/20 15:44 Glucose (Dex4 Glucose) 4 - 8 tabs PO UD PRN; Protocol PRN Reason: Hypoglycemia Protocol Stop: 01/06/20 15:44 Heparin Sodium (Porcine) (Heparin Sodium (Porcine)) 5,000 units SQ Q12 [facility] Stop: 01/07/20 08:59 Last Admin: 12/09/19 21:11 Dose: Not Given Documented by: Insulin Aspart (Novolog Flexpen) 0 units SC ACHS [facility] Stop: 01/07/20 07:29 Last Admin: 12/09/19 20:34 Dose: 2 units Documented by: Insulin Aspart (Novolog Flexpen) 0 units SC TODAY@0200 [facility] Stop: 01/09/20 01:59 Insulin Glargine (Lantus Solostar Pen) 0 units SC BID [facility]; Protocol Stop: 01/07/20 20:59 Last Admin: 12/09/19 20:34 Dose: 6 units Documented by: Miscellaneous (Carbohydrates For Hypoglycemia) 15 - 30 gm PO UD PRN PRN Reason: Hypoglycemia Treatment Stop: 01/06/20 15:44 Miscellaneous Information (Consult Glycemic Management Pharmacy) 1 ea N/A UD PRN; Protocol PRN Reason: Consult Stop: 01/07/20 04:41 Multivitamins (Multivitamin Tab) [facility] [place] Stop: 01/07/20 08:59 Last Admin: 12/09/19 08:12 Dose: 1 tab Documented by: Thiamine HCl (Vitamin B-1) 100 mg PO QAM [facility] Stop: 01/07/20 08:59 Last Admin: 12/09/19 08:12 Dose: 100 mg Documented by: (1) DKA (diabetic ketoacidoses) Diabetes mellitus complication detail: without coma Diabetes mellitus type: other specified (including LEVY) Qualified Code(s): E13.10 - Other specified diabetes mellitus with ketoacidosis without coma
[2019-12-10] MEDS ORDERED: INSULIN ASPART 100 UNITS/ML 3 ML PEN SC SCH ×3 (02:00→21:00)
[2019-12-10] MEDS: ACETAMINOPHEN 325 MG TAB PO PRN ×2 (02:10→13:09)
[2019-12-10] MEDS ORDERED: INSULIN HUMAN REGULAR PER UNIT 2 UNITS in SYRINGE 1.98 ML IV ONE (04:15)
[2019-12-10] MEDS: FOLIC ACID 1 MG TAB PO SCH (08:10)
[2019-12-10] MEDS: HEPARIN SOD 5,000 UNIT/0.5 ML VIAL SQ SCH (08:10)
[2019-12-10] MEDS: THIAMINE HCL 100 MG TAB PO SCH (08:10)
[2019-12-10] MEDS: MULTIVITAMIN TAB PO SCH (08:10)
[2019-12-10] MEDS: INSULIN GLARGINE SOLOSTAR 100 UNITS/ML 3 ML PEN SC SCH (08:35)
[2019-12-10] MEDS: INSULIN ASPART 100 UNITS/ML 3 ML PEN SC SCH ×2 (08:36→14:32)
--- NOTE | 2019-12-10 11:05 | Hospitalist Progress Note ---
Date of Service December 10, 2019 Assessment & Plan (1) DKA (diabetic ketoacidoses): pt admitted with malasie , weakness, nausea found to be in DKA with BSG >1000, AG 20 , hco3 14 pt was admitted to ICU treated with IV insulin gtt , IV fluid per DKA protocol no prior hx of diabetes Hb a1c 12 on 12/08/2019 pt's symptom resolved after iv insuin gtt and BSG improvement IV insuin Gtt D/ec transitioned to Sub q insulin with basal Lantus pt will need to be on insulin due to elevated hb a1c 12 appreciated input from clinical nurse educator and pharmacy for glycemic mangement pt is agreeable to go home with insulin sc adviced to follow up with /establish care with family physican as she will need close follow up for diabetes management pt is discharged with lantus 12 u in am and Novolog 7 unit before each meal and sliding scale (2) Tachycardia: due to dehydration , DKA resolved after IV hydration and insulin no sign of infection vitals stable , HR 78 /BP 115/73 on day of discharge DISPOSITION : stable to be discharged home today Subjective feeling much better today no complain of nausea /vomiting appetite is fair energy back to baseline feels she is ready to be discharged home comfortable with self administration of insulin willing to check blood sugar 3-4x /day and establish care with family physician with [facility] [place] Review of Systems Constitutional: + fatigue and + weight loss; no fever and no chills Eyes: + worsening vision Ear, Nose, Mouth, Throat: + ear pain (Muffled hearing) and + dental pain (Recent dental extraction, but no current issues) Respiratory: + dyspnea; no cough and no pain on inspiration Cardiovascular: + palpitations; no chest pain and no edema Gastrointestinal: + nausea and + vomiting; no abdominal pain Genitourinary: + urinary frequency Musculoskeletal: + back pain (Chronic) Endocrine: + polydipsia and + polyuria Physical Exam Constitutional: WD/WN, vitals as above + ill appearing, + thin, cooperative, comfortable, + malnourished and + underweight Eyes: PERRL, conjunctivae normal, anicteric sclerae EOM intact bilaterally ENMT: external ear and nose normal, oropharynx normal Neck: trachea midline, no thyromegaly normal visual inspection Respiratory: normal respiratory effort, lungs clear to auscultation Auscultation: no crackles, no rhonchi and no wheezes Cardiovascular: RRR, no murmur, no edema Heart Sounds: normal S1 and normal S2; no murmur Vessels: no JVD Extremities: normal capillary refill; no edema Chest (Breasts): Chest: normal inspection of chest Gastrointestinal (Abdomen): normal bowel sounds, soft, nontender, no hepatosplenomegaly Inspection/Auscultation: abdomen normal to inspection and normal bowel sounds Percussion/Palpation: abdomen soft; abdomen nontender and no guarding Musculoskeletal: no cyanosis or clubbing, extremities motor strength 5/5 Head/Neck/Chest: normocephalic, head atraumatic and neck supple Extremities: extremities normal to inspection Skin: no rashes, warm and dry Neurologic: PERRL, EOMI, accommodation nl, no face palsy, no dysarthria CN's II-XI intact bilaterally and moves all extremities Speech / Cognition: normal speech Psychiatric: A+Ox3, euthymic affect Speech: normal rate/rhythm/volume of speech Genitourinary: no CVA tenderness Lymphatic: no lymphedema Results & Data Vital Signs (Past 12 Hours) Vital Signs Temp Pulse Pulse Resp BP BP Pulse Ox 12/10/19 07:48 36.8 C 77 18 99/64 L 98 12/09/19 23:26 36.6 C 78 18 112/77 100 (1) DKA (diabetic ketoacidoses) Diabetes mellitus complication detail: without coma Diabetes mellitus type: other specified (including LEVY) Qualified Code(s): E13.10 - Other specified diabetes mellitus with ketoacidosis without coma
--- NOTE | 2019-12-10 12:26 | Pharmacy Report ---
Pharmacy Glycemic Short Note 2 - Date of Service December 10, 2019 - Glycemic Short BSG Results (Last 24 hours): 12/09/19 12/09/19 12/10/19 16:46 20:08 01:58 POC Glucose 189 H 195 H 127 H 12/10/19 12/10/19 12/10/19 03:56 03:58 07:52 POC Glucose 320 H* 333 H* 235 H 12/10/19 11:17 POC Glucose 259 H OUTPATIENT ANTIDIABETIC REGIMEN: * no prior h/o DM * A1c = 12.9 12/08/19 ASSESSMENT: 12/10 * BSGs better controlled yesterday * Over the last 24 hrs she had been given 34 units SQ insulin * Fasting BSG however greatly elevated this AM but cannot be considered reflective of a true "fasting" value. Pt c/o BURRIS and hypoglycemia symptoms overnight, BSG was checked and was 127, and she was given cereal and small bolus IV insulin * I believe this patient's daily insulin requirements will likely be 30-35 units of insulin per day while tolerating a diet 12/09 * Patient successfully transitioned off insulin drip yesterday AM * BSGs elevated throughout the day yesterday, possibly due to insufficient prandial insulin and/or elevated insulin resistant in first 24 hrs following resolution DKA. If post-prandial hyperglycemia continues today, will adjust CR * Fasting AM BSG 76 this AM with 18 units basal on board - will scale back basal insulin doses. Will withhold basal AM dose and give with lunch instead when BSG above 100 12/08 * Patient presented to ER with c/o tachycardia, NV, dizziness and malaise * Moderate DKA evident on initial labs: GLU 1092, AG 20, Bicarb 14, vpH 7.25, Na 122 (lucinda Na ~140) * No prior dx of DM * IV fluids and IV insulin drip initiated in the ER * This AM, AG acidosis has resolved (AG 2, Bicarb 24), patient is feeling well and eating breakfast * IV insulin drip turned off at 0800, ~ 2 hrs after receiving Lantus 5 units x 1. Gave an additional 7units x 1 in order to provide full 24 hr basal insulin requirement to increase our chances of successful transition to SQ today * Patient is of low body weight, thus insulin doses will appear small in comparison to other patients. Initial SQ regimen will be based upon weight and mod-severe stress level (moderate for basal doses, severe for correction/prandial doses) PLAN FOR INPATIENT GLYCEMIC CONTROL: * Basal insulin * Lantus 12 units SQ daily with breakfast (will give 6 additional using with lunch as she received 6 with breakfast this AM and DC the BID order) * Bolus insulin * NovoLog per scale ACHS and 0200 to screen for hypoglycemia * Goal Range: Low 110 mg/dL - High 140 mg/dL * Correction Factor: 40 mg/dL/unit * Nutritional / Prandial insulin per carb ratio of 1 unit per 15 grams CHO consumed PLAN FOR DISCHARGE: * Given patient's DKA presentation and A1c, patient will require Basal/bolus SQ regimen on discharge with close f/u with PCP or Endocrinology for adjustments within a few days of discharge. Given patient's low body weight and little SQ fat, once daily basal insulin would be best if possible. * Based upon BSGs and insulin doses the last 2 days would recommend the following insulin doses on discharge: * BSGs ACHS * Lantus 12 units daily in the AM * Novolog 7 units with each meal (omit dose if meal is skipped, may half the dose if eating poorly) * Correctional insulin per scale with meals only (not at bedtime): * 0 units if BSG less than 180 * 1 units if BSG 181-220 * 2 units if BSG 221-260 * 3 units if BSG 261-300 * 4 units if BSG above 300 and call your physician's office for assistance
[2019-12-10] MEDS ORDERED: INSULIN GLARGINE SOLOSTAR 100 UNITS/ML 3 ML PEN SC ONE ×2 (12:30)
--- NOTE | 2019-12-11 07:54 | Discharge Summary ---
Date of Service December 11, 2019 Admission HPI Per Admitting Provider Patient is a 39-year-old female, with no significant past medical history, besides occasional tachycardia since she has been 17 years old. She presented today at her PCP office, and was seen by Jackie Quiros PA-C. Pt has been feeling thirsty, and having polyuria since . She has had nausea, for past several days. She also has had significant weight loss. Patient says that her regular weight is about 104 pounds, recently she is about 87 pounds. For past couple of days she also felt short of breath and had palpitations. On November 18, she had 6 teeth extracted. Today she followed up with her dentis t, and reportedly there were no issues. At her PCP office today, she was found to be tachycardic in the 190s. She was sent to the ER via ambulance for further evaluation. She was found to have SVT, and received adenosine in the ED, now she is in normal sinus rhythm. However her blood glucose level was elevated over 1000. Ketones positive. She also has HEATHER and is hyponatremic, sodium 122. VBG obtained, pH 7.25. Patient was started DKA treatment in the ED, she received 2 L of normal saline and was started on IV insulin drip. Principal Diagnosis Diabetes newly diagnosed , DKA Discharge Exam Constitutional WD/WN, vitals as above + ill appearing, + thin, cooperative, comfortable, + malnourished and + underweight Eyes PERRL, conjunctivae normal, anicteric sclerae EOM intact bilaterally ENMT external ear and nose normal, oropharynx normal Neck trachea midline, no thyromegaly normal visual inspection Respiratory normal respiratory effort, lungs clear to auscultation Auscultation: no crackles, no rhonchi and no wheezes Cardiovascular RRR, no murmur, no edema Heart Sounds: normal S1 and normal S2; no murmur Vessels: no JVD Extremities: normal capillary refill; no edema Chest (Breasts) Chest: normal inspection of chest Gastrointestinal (Abdomen) normal bowel sounds, soft, nontender, no hepatosplenomegaly Inspection/Auscultation: abdomen normal to inspection and normal bowel sounds Percussion/Palpation: abdomen soft; abdomen nontender and no guarding Musculoskeletal no cyanosis or clubbing, extremities motor strength 5/5 Head/Neck/Chest: normocephalic, head atraumatic and neck supple Extremities: extremities normal to inspection Skin no rashes, warm and dry Neurologic PERRL, EOMI, accommodation nl, no face palsy, no dysarthria CN's II-XI intact bilaterally and moves all extremities Speech / Cognition: normal speech Psychiatric A+Ox3, euthymic affect Speech: normal rate/rhythm/volume of speech Genitourinary no CVA tenderness Lymphatic no lymphedema Discharge Data Allergies Allergy/AdvReac Type Severity Reaction Status Date / Time No Known Allergies Allergy Verified 12/07/19 15:44 Consultations 12/07/19 15:27 ED Decision to Admit Stat 12/07/19 18:58 Consult Backroom Associate Routine 12/07/19 19:25 Consult Case Management - Discharge Planning Routine Ordered Studies 12/07/19 13:56 CT head/brain wo con Stat Hospital Course (1) Tachycardia: due to dehydration , DKA resolved after IV hydration and insulin no sign of infection vitals stable , HR 78 /BP 115/73 on day of discharge DISPOSITION : stable to be discharged home today (2) DKA (diabetic ketoacidoses): pt admitted with malasie , weakness, nausea found to be in DKA with BSG >1000, AG 20 , hco3 14 pt was admitted to ICU treated with IV insulin gtt , IV fluid per DKA protocol no prior hx of diabetes Hb a1c 12 on 12/08/2019 pt's symptom resolved after iv insuin gtt and BSG improvement IV insuin Gtt D/ec transitioned to Sub q insulin with basal Lantus pt will need to be on insulin due to elevated hb a1c 12 appreciated input from nurse educator and pharmacy for glycemic mangement pt is agreeable to go home with insulin sc adviced to follow up with /establish care with family physican as she will need close follow up for diabetes management pt is discharged with lantus 12 u in am and Novolog 7 unit before each meal and sliding scale Total Time Total Time Spent Total Time Spent (In Minutes): APPROX 40 MINS Total Time Includes: Examination of the Patient, Discharge Planning, Medication Reconciliation and Communication With Other Providers Discharge Plan Discharge Items Patient Disposition: Home - Self-Care Reason For Visit: DKA Discharge Diagnosis: DKA .DIABETES /NEW DIAGNOSIS Activity: Resume your previous activity Non-emergency contact: Primary Care Provider Call non-emergency contact if: you have any medication questions Follow-up/Referrals: PCP,NO [Primary Care Provider] - Diet: Carb Count or DM1 Addtl Attending Provider Instructions: Please establish care with a Family physician [facility] Phone number: [phone] Toll-free: [phone], [address] [facility] [address] INSULIN REGIMEN ON DISCHARGE: Lantus 12 units daily in the AM( BEFORE BREAKFAST ) Novolog 7 units with each meal (omit dose if meal is skipped, may half the dose if eating poorly) Correctional insulin per scale with meals only (not at bedtime): 0 units if BSG less than 180 1 units if BSG 181-220 2 units if BSG 221-260 3 units if BSG 261-300 4 units if BSG above 300 and call your physician's office for assistance BLOOD SUGAR CHECK : FASTING ( BEFORE BREAKFAST ) /BEFORE LUNCH , BEFORE DINNER PLEASE KEEP LOG AND BRING TO NEXT PHYSICIAN VISIT YOU NEED TO FOLLOW UP WITH DIABETIC CLINIC /ENDOCRINE CLINIC FOR BLOOD SUGAR MANAGEMENT IT IS VERY IMPORTANT FOR YOU TO HAVE GOOD CONTROL OF YOUR DIABETES TO PREVENT FUTURE COMPLICATIONS : VISION LOSS, KIDNEY FAILURE , STROKE , HEART ATTACK Pending Studies at Discharge: Yes Studies:: REPEAT HB A1C IN 3 MONTHS Stand-Alone Forms: My [facility], Smoking Cessation Medications and DC Order Prescriptions: New Lantus Solostar U-100 Insulin 100 unit/mL (3 mL) insulin pen 12 units SQ DAILY Qty: 15 RF: 0 insulin aspart U-100 [Novolog Flexpen U-100 Insulin] 100 unit/mL (3 mL) insulin pen 7 units SQ UD Qty: 15 RF: 0 (DME) pen needle, diabetic [BD Ultra-Fine Micro Pen Needle] 32 gauge x 1/4" needle See Rx Instructions .ROUTE .MEDSUPPLY Qty: 100 RF: 3 (DME) Lancets,Thin 23 gauge misc See Rx Instructions .ROUTE .MEDSUPPLY Qty: 100 RF: 3 (DME) blood glucose control, normal [OneTouch Verio Mid Control] Solution See Rx Instructions .ROUTE .MEDSUPPLY Qty: 1 RF: 0 Continued Women's One Daily 18 mg iron-400 mcg-500 mg Ca Tablet 1 tab PO DAILY RF: 0 Discontinued ibuprofen 200 mg Tablet 400 mg PO Q6H PRN (Reason: Pain) RF: 0 Discharge Orders: Discharge Order (Routine); Ordered 12/10/19 Ordered By: Jessenia Tinoco/Other Patient Handouts: Diabetes Mold Washer Complications, Diabetes Resources, Diabetes Type 1 Coping, Insulin Types, Diabetes Living Life, Diabetes Get Support, Diabetes Type 1, A1C Admission Data Admit Date/Time: 12/07/19 17:37 Attending Provider: Jessenia Iglesias Admit Provider: Taqueria Mack Primary Care Provider: PCP,NO Other Providers: Smith Henry ; Heriberto Trivedi ; Paul Barboza ; Triston Molina ; Narinder Apodaca ; Ramone Bah ; Félix Arroyo ; Nahomi Mi Other Interventions: Discharge Summary Assessment (RN) Last Done: 12/10/19 17:09 DC Date/Time DO NOT enter until pt leaves facility: 12/10/19 17:28
[2019-12-11] MEDS ORDERED: INSULIN GLARGINE SOLOSTAR 100 UNITS/ML 3 ML PEN SC SCH (09:00)
[2019-12-15 23:52] LABS: Glutamic Acid Decarboxylase 65 88 IU/mL (<5)
== END 2019-12-10 17:28 | disposition home or self-care (01) | DRG 637 ==
LOC: ED 13:02 → 1E 17:37 → SUATTDRO 17:37 → 1E 18:32 → 4W 12-09 13:57